=== PATIENT | female | born 1985 | race African-American/Black ===

== ENCOUNTER 2021-12-28 16:05 | Emergency (ER) | payer MEDICAID, SELFPAY ==
[2021-12-28 16:33] VITALS: BP 131/73; PULSE 81; RESP 16; TEMP 36.7; O2SAT 97; BMI 37.3
--- NOTE | 2021-12-28 17:00 | ED_ITS ---
HPI - General Adult General Time Seen by Provider: 17:01 Date Seen: 12/28/21 Chief complaint: Urogenital Problems, Female Stated complaint: UTI, Can't use right hand Time Seen by Provider: 12/28/21 16:48 Source: patient Mode of arrival: ambulatory Limitations: no limitations History of Present Illness HPI narrative: Patient is a 36-year-old female who has dysuria frequency blood in her urine, she has had frequent UTIs. She has allergy to narcotics. She also reports that she works at [employer] and has had right thumb pain the base of her thumb for the last period of time. She is not really tried any treatment. She has not had today time off work. Denies significant trauma to the area Related Data Previous Rx's Medication Instructions Recorded nitrofurantoin 100 mg PO BID #10 caps 12/28/21 monohydrate/macrocrystals 100 mg capsule (Macrobid) Allergies Allergy/AdvReac Type Severity Reaction Status Date / Time acetaminophen [From Vicodin] Allergy Severe Anaphylaxis Verified 12/28/21 16:45 hydrocodone [From Vicodin] Allergy Severe Anaphylaxis Verified 12/28/21 16:45 morphine Allergy Severe heart stops Verified 12/28/21 16:45 Review of Systems Status of ROS: Reports: 6 or more systems reviewed and unremarkable except as noted in History and below PFSH PFSH Social History Smoking Status: Former smoker Do you use any of these nicotine containing products: None Second hand tobacco smoke exposure: Yes How often do you have a drink containing alcohol: monthly or less How many standard drinks containing alcohol do you have on a typical day: 1 or 2 How often do you have six or more drinks on one occasion: Never AUDIT-C Alcohol total score: 1 Non-prescribed substance use: marijuana (any form) service: No Exam Narrative: Exam Narrative: Objective in general the patient is no apparent distress she is very pleasant vital signs unremarkable she is afebrile Kendal Patient has over her extensor tendon number proximal thumb on the right, but she really does not want this examined, she has limited range of motion, mild soft tissue swelling. Patient denies any flank pain or but has had dysuria frequency. Const: Vital Signs, click to edit/add: Vital Signs - 24 hr 12/28/21 16:33 Temperature 98.1 F Pulse Rate [Right Pulse Oximeter] 81 Respiratory Rate 16 Blood Pressure [Ri ght Upper Arm] 131/73 Pulse Oximetry 97 Oxygen Delivery Me thod Room Air Course Vital Signs Vital signs: Initial Vital Signs Temperature 98.1 F 12/28/21 16:33 Temperature Source Temporal Artery Scan 12/28/21 16:33 Pulse Rate 81 12/28/21 16:33 Respiratory Rate 16 12/28/21 16:33 Blood Pressure 131/73 12/28/21 16:33 Blood Pressure Mean 92 12/28/21 16:33 Blood Pressure Position Sitting 12/28/21 16:33 Pulse Oximetry 97 12/28/21 16:33 Oxygen Delivery Method 12/28/21 16:33 Vital Signs Temperature 98.1 F 12/28/21 16:33 Pulse Rate 81 12/28/21 16:33 Respiratory Rate 16 12/28/21 16:33 Blood Pressure 131/73 12/28/21 16:33 Pulse Oximetry 97 12/28/21 16:33 Oxygen Delivery Method 12/28/21 16:33 Temperature 98.1 F 12/28/21 16:33 Pulse Rate 81 12/28/21 16:33 Respiratory Rate 16 12/28/21 16:33 Blood Pressure 131/73 12/28/21 16:33 Pulse Oximetry 97 12/28/21 16:33 Oxygen Delivery Method 12/28/21 16:33 Medical Decision Making MDM Narrative Medical decision making narrative: Would recommend icing for the thumb tendinitis thumb spica splint will be given, Advil or Aleve as needed, follow-up with primary care in the next few days if not improving or resolving Urinary frequency in symptoms would be treated Macrobid 100 b.i.d. x5 days, she has had frequent infections and I think currently has her menstrual cycle therefore urinalysis be much less helpful. Will simply treat with antibiotics Lab Data Labs: Lab Results 12/28/21 Range/Units 16:49 Urine Color Brown A (Yellow) Urine Appearance Clear (Clear) Urine pH 5.5 (5.0-8.5) Ur Specific [place] 1.025 (1.000-1.030) Urine Protein 1+ A (Negative) Urine Glucose (UA) Negative (Negative) Urine Ketones Negative (Negative) Urine Blood 3+ A (Negative) Urine Nitrite Negative (Negative) Urine Bilirubin Negative (Negative) Urine Urobilinogen 0.2 (0.2-1.0) Ur Leukocyte Esterase 1+ A (Negative) Urine RBC 10-25 A (0-2) Urine WBC 5-10 A (0-5) Ur Squamous Epith Cells Few (None-Few) Urine Bacteria None (None) Discharge Plan Discharge Clinical Impression: Urinary tract infection, Pain of right thumb Patient Disposition: Home, Self-Care Condition: Stable Additional Instructions: Rest, fluids, ice to the thumb area that is sore 5-10 minutes 3 times a day for the next 5 days, Advil or Aleve as needed, thumb spica splint given. Patient also be given Macrobid for UTI which she has had repetitively 100 mg b.i.d. x5 days, push fluids, follow up with primary care in the next few days regarding her hand. Activity Level: Light activity and Wear Brace Discharge Diet: Regular Prescriptions: New nitrofurantoin monohyd/m-cryst [Macrobid] 100 mg capsule 100 mg PO BID Qty: 10 0RF Rx Instructions: must administer with a meal/food Stand Alone Forms: [facility] Info Instructions
[2021-12-28 17:05] LABS: Appearance Urine Clear (Clear); Bilirubin Urine Negative (Negative); Blood Urine 3+ (Negative); Color Urine Brown (Yellow); Glucose Urine Negative (Negative); Ketones Urine Negative (Negative); Leukocyte Esterase Urine 1+ (Negative); Nitrite Urine Negative (Negative); Protein Urine 1+ (Negative); Specific Gravity Urine 1.025 (1.000-1.030); Urobilinogen Urine 0.2 (0.2-1.0); pH Urine 5.5 (5.0-8.5)
[2021-12-28 17:13] LABS: Squamous Epithelial Cell Urine Few (None-Few)
== END 2021-12-28 17:47 | disposition home or self-care (01) ==
PROVIDERS: Emergency Provider Family Medicine
DX: M79.644 Pain in right finger(s) (principal); N39.0 Urinary tract infection, site not specified
CPT/HCPCS: 81001; 87086; 99282; 99283

== ENCOUNTER 2022-08-01 17:12 | Emergency (ER) | payer MEDICAID, SELFPAY ==
[2022-08-01 17:19] VITALS: BP 139/92; PULSE 106; RESP 16; TEMP 37; O2SAT 98; BMI 35.3
[2022-08-01 17:30] VITALS: BP 134/111
--- NOTE | 2022-08-01 17:34 | ED.HA ---
HPI - Headache General Chief Complaint: Headache/Migraine Stated Complaint: Migraine for 3 days, possible lupus flair up Time Seen by Provider: 08/01/22 17:19 History of Present Illness HPI Narrative: This 36-year-old female comes in reporting headache for the past 3 days. She states that she does get headaches at various times and this 1 is more severe than usual. She does reports some blurry vision and has some nausea but no vomiting. She does not have any other report of neurologic deficit. She does have lupus and states that her OLY was checked recently and it was elevated. She is wondering if she is having a flare-up of her lupus symptoms. Related Data Previous Rx's Medication Instructions Recorded nitrofurantoin 100 mg PO BID #10 caps 12/28/21 monohydrate/macrocrystals 100 mg capsule (Macrobid) Allergies Allergy/AdvReac Type Severity Reaction Status Date / Time acetaminophen [From Vicodin] Allergy Severe Anaphylaxis Verified 12/28/21 16:45 hydrocodone [From Vicodin] Allergy Severe Anaphylaxis Verified 12/28/21 16:45 morphine Allergy Severe heart stops Verified 12/28/21 16:45 Review of Systems Status of ROS: Reports: 10 or more systems reviewed and unremarkable except as noted in History and below Narrative: Constitutional: No fevers, no weight gain or loss. Eyes: No discharge. She reports some blurry vision. HENT: No congestion, no sore throat, no ear pain. Cardiovascular: No chest pain, no palpitations. Respiratory: No shortness of breath, no wheezes, no cough. Gastrointestinal: No abdominal pain, no vomiting, no diarrhea. She reports some nausea symptoms. Genitourinary: No dysuria, no hematuria. Musculoskeletal: Normal range of motion. Skin: No rashes, no pruritis. Neurological: No dizziness, weakness, sensory change, speech change. Endo/Heme/Allergies: No bruising or bleeding. No polydipsia. Pysch: no suicidality, no anxiety, no insomnia. All other systems reviewed and are negative. [facility] Social History Smoking Status: Former smoker Do you use any of these nicotine containing products: None Second hand tobacco smoke exposure: Yes How often do you have a drink containing alcohol: monthly or less How many standard drinks containing alcohol do you have on a typical day: 1 or 2 How often do you have six or more drinks on one occasion: Never AUDIT-C Alcohol total score: 1 Non-prescribed substance use: marijuana (any form) service: No Exam Narrative: Exam Narrative: Constitutional: Well-developed, well-nourished. She is tearful because of her headache symptoms. HEENT: Normocephalic, atraumatic. Neck: Normal range of motion. Nontender. Supple. Heart: Regular. No murmurs. Normal rate. Intact distal pulses. Lungs: Clear to auscultation. No chest discomfort. No wheezes, rhonchi, or rales. Abdomen: Normal bowel sounds. Nontender. No rebound tenderness. Genitalia: Deferred. Back: No midline tenderness. Normal range of motion. Extremities: Normal range of motion. No injury. Skin: Intact. No rash. Warm. No erythema or pallor. Neurologic: No altered sensation. No weakness. Alert and oriented. Psychiatric: No suicidality. No anxiety or depression. No insomnia. Nursing notes and vitals signs are reviewed. Const: Vital Signs, click to edit/add: Vital Signs - 24 hr 08/01/22 17:19 Temperature 98.6 F Pulse Rate [Pulse Oximeter] 106 H Respiratory Rate 16 Blood Pressure [Ri ght Upper Arm] 139/92 H Pulse Oximetry 98 Oxygen Delivery Me thod Room Air Course Vital Signs Vital signs: Initial Vital Signs Temperature 98.6 F 08/01/22 17:19 Temperature Source Temporal Artery Scan 08/01/22 17:19 Pulse Rate 106 H 08/01/22 17:19 Pulse Rhythm Regular 08/01/22 17:19 Respiratory Rate 16 08/01/22 17:19 Blood Pressure 139/92 H 08/01/22 17:19 Blood Pressure Mean 107 H 08/01/22 17:19 Blood Pressure Position Supine 08/01/22 17:19 Pulse Oximetry 98 08/01/22 17:19 Oxygen Delivery Method Room Air 08/01/22 17:19 Vital Signs Temperature 98.6 F 08/01/22 17:19 Pulse Rate 106 H 08/01/22 17:19 Respiratory Rate 16 08/01/22 17:19 Blood Pressure 139/92 H 08/01/22 17:19 Pulse Oximetry 98 08/01/22 17:19 Oxygen Delivery Method Room Air 08/01/22 17:19 Temperature 98.6 F 08/01/22 17:19 Pulse Rate 106 H 08/01/22 17:19 Respiratory Rate 16 08/01/22 17:19 Blood Pressure 139/92 H 08/01/22 17:19 Pulse Oximetry 98 08/01/22 17:19 Oxygen Delivery Method Room Air 08/01/22 17:19 MDM - Headache MDM Narrative Medical decision making narrative: This patient comes in with headache as described above. An IV was established where she did receive a L of normal saline, Toradol 15 mg, Benadryl 50 mg, and Zofran 4 mg. She also received a 1 time IV dose of methylprednisolone 125 mg. This brought sufficient relief to her symptoms. She is okay to be discharged home. She did receive a prescription for more tablets of Toradol to be used as needed and directed. Discharge Plan Discharge Clinical Impression: Headache Patient Disposition: Home, Self-Care Condition: Improved Additional Instructions: Take medication as needed and directed. Follow up with MD or return if worsening. Prescriptions: No Action nitrofurantoin monohyd/m-cryst [Macrobid] 100 mg capsule 100 mg PO BID Qty: 10 0RF Rx Instructions: must administer with a meal/food Follow Up/Referrals: Provider,Not a Local [Primary Care Provider] - Stand Alone Forms: [employer] Info Instructions
[2022-08-01 18:00] VITALS: BP 136/103
[2022-08-01] MEDS: KETOROLAC 30 MG/ML inj 15 MG IVP (18:12)
[2022-08-01] MEDS: METHYLPREDNISOLONE SOD SUCC 62.5 MG/ML (125) 125 MG IVP (18:12)
[2022-08-01] MEDS: diphenhydrAMINE 50 MG/ML inj IVP (18:12)
[2022-08-01] MEDS: ONDANSETRON 2 MG/ML inj 4 MG IVP (18:12)
[2022-08-01] MEDS: 0.9 % SODIUM CHLORIDE 1000 ml 1,000 ML IV (18:13)
[2022-08-01 18:30] VITALS: BP 137/86; PULSE 86; O2SAT 94
[2022-08-01 19:30] VITALS: BP 142/108; PULSE 87; O2SAT 97
== END 2022-08-01 19:50 | disposition home or self-care (01) ==
PROVIDERS: Emergency Provider Emergency Medicine Emergency Medical Services
DX: R51.9 Headache, unspecified (principal)
CPT/HCPCS: 96361; 96374; 96375; 99284; J1200; J1885; J2405; J2930; J7030

== ENCOUNTER 2024-08-06 17:06 | Emergency (ER) | payer MEDICAID, OTHER, SELFPAY ==
--- OUTSIDE RECORDS SUMMARY | 2024-02-28 05:44 | XMS_ITS | Continuity of Care Document ---
Author Organization [facility] Address [address] [address] [place] [address] Phone Care Team Providers Care [facility] Name Role Phone Tom Gallardo MD, Jarrell Unavailable Unavailabl e Allergies, Adverse Reactions, Alerts Substance Reaction Status Criticality hydrocodone Active No Information morphine Heart stopped Active No Information WARNIN allergy(ies) could not be collected because the type is not supported. Please contact the source practice for further details. Procedures Procedure Date Routine Serum Collection Offic/outpt E&m Estab Mod-hi 2 24 Colonoscopy Flex; W/bx /mx Ugi Endo; W/bx /mx Level Iv-surg Path Gross/micro 24 Offic/outpt E&m Estab Mod-hi 2 24 Offic/outpt E&m New Mod-hi Routine Serum Collection Subsqt Hosp-da E&m Minr Compl 9 Ercp; W/sphincterotomy/papillo Inpt Ercp; W/endo Retro Remov Stone 09 Init Inpt Cons New/est Mod-hi 9 Advance Directives Directive Yes / No Effective Date File Name No Information Encounters Encounter Description Practice Location Reason(s) For Visit Diagnoses Date Provider Providers Copied on Encounter [facility], [address] [address], [place], [id number], tel:[phone] [facility] No Information 4 Tom Vieyra. [address], [id number], [place]. tel:[phone] [facility], [address] [address], [facility] [place] [id number], [place] tel:[phone] [facility] Abnormal liver enzymes 4 Royer [place]. [address] [place] [address], [id number], [place]. tel:[phone] Jose Gaviria MD. tel:[phone] Offic/outpt E&m Estab Mod-hi 2 [facility], [address] [address], [facility] [place], [id number], [place] tel:[phone] [facility] GI Symptoms or Concerns (chief complaint) Abnormal liver enzymesHomici kasey ideation 4 Royer MARTHA Felipa. [address] [place] [address], [id number], [place]. tel:[phone] Jose Gaviria MD. tel:[phone] erring Provider: Referral Self, USE FOR SELF REFERRALS. [facility], [address] [address], [facility] [place] [id number], [place] tel:[phone] [facility] Noninfective gastroenterit is and colitis, unspecifiedUn specified abdominal painChronic diarrheaColor ectal polyp detected on colonoscopyBe nign neoplasm of cecumUnspecif ied abdominal painNoninfect maria fernanda gastroenterit is and colitis, unspecified 0 4 Kyler Millard. [address], [id number], [place]. tel:[phone] Jose Gaviria MD. tel:[phone] erring Provider: Referral Self, USE FOR SELF REFERRALS. Offic/outpt E&m Estab Mod-hi 2 [facility], [address] [address], [place], [id number], [place] tel:[phone] [facility] GI Symptoms or Concerns (chief complaint) Left-sided abdominal pain of unknown etiologyLupus Abnormal liver enzymesEarly satietyLoss of appetiteAdult ADHDChronic diarrhea 4 Kyler BOSE Freeman. [address] [facility], [facility] [address], [place], [id number], [place]. tel:[phone] Jose Gaviria MD. tel:[phone] erring Provider: Referral Self, USE FOR SELF REFERRALS. Offic/outpt E&m New Mod-hi [facility], [address] [address], [place], [id number], [place] tel:[phone] [facility] GI Symptoms or Concerns (chief complaint) Chronic diarrheaAbnor mal liver enzymes 4 Kyler BOSE Freeman. [address] [facility], [facility] [address], [place], [id number], [place]. tel:[phone] Jose Gaviria MD. tel:[phone] erring Provider: Regan Cote MD L, [address], [place], [address]. tel:[phone] [facility], [address] [address], [place], [id number], [place] tel:[phone] [facility] No Information 4 Tom Vieyra. [address] [facility], [facility] [address], [place], [place], [id number], [place]. tel:[phone] Subsqt Hosp-da E&m Minr Compl [facility], [address] [address], [place], [id number], [place] tel:[phone] [facility] No Information No Information Referring Provider: Jose Gaviria MD, [address] [facility] [address], [address]. tel:[phone] [facility], [address] [address], [place], [id number], [place] tel:[phone] [facility] No Information Dec-2 8-200 9 No Information Referring Provider: Jose Gaviria MD, [address] [facility] [address], [place], [address]. tel:[phone] Init Inpt Cons New/est Mod-hi [facility], [address] [address], [place], [place], [id number], [place] tel:[phone] [facility] No Information Phill Winchester. [address] [facility], [place], [place], [id number], [place]. tel:[phone] Referring Provider: Jose Gaviria MD, [address] [facility] [address], [place], [address]. tel:[phone] Family History Family Member Type Diagnosis Age At Onset Mother Problem Diverticular disease Immunizations Vaccine Date Status Comments tetanus and diphtheria toxoi ds, adsorbed, preservative free, for adult use (5 Lf of tetanus toxoid and 2 Lf of diphtheria toxoid) administered Note: [facility] bi-direct ional interface ; Source: Other Registry Afluria Qd administered Note: [facility] bi-directional interface ; Source: Other Registry Afluria Qd administered Note: [facility] bi-directional interface ; Source: Other Registry Afluria Qd administered Note: [facility] bi-directional interface ; Source: Other Registry Afluria Qd administered Note: [facility] bi-directional interface ; Source: Other Registry human papilloma virus vaccin e, quadrivalent administered Note: [facility] bi-direct ional interface ; Source: Other Registry Engerix-B administered Note: [facility] bi-d irectional interface ; Source: Other Registry human papilloma virus vaccin e, quadrivalent administered Note: [facility] bi-direct ional interface ; Source: Other Registry tetanus toxoid, reduced diphtheria toxoid, and acellular pertussis vaccine, adsorbed administered Note: [facility] b i-directional interface ; Source: Other Registry Energix Pediatric administered Note: [facility] bi-directional interface ; Source: Other Registry Energix Pediatric administered Note: [facility] bi-directional interface ; Source: Other Registry Haemophilus influenzae type b vaccine, PRP-T conjugate administered Note: [facility] bi-d irectional interface ; Source: Other Registry Payers Payer name Insurance type Covered libertarian ID Authoriza tion(s) No Information Social History Type Description Quantity Date Captured Comments Sex Female Smoking Status No Information Chief Complaint And Reason For Visit No Information Reason For Referral Reason For Referral No Information Plan Of Treatment Date Type Action Status Referral Ordered: follow-up visit with Hepatology MD or DO for Hepatology Clinic First Available Appointment date/timeframe: First Available ordered Referral Ordered: CBC, Whole Blood Appointment date/timeframe: First Available ordered Referral Ordered: Gastric Emptying Study (4 Hours) Appointment date/timeframe: 05/17/2023 ordered Referral Ordered: Liver Biopsy With Ultrasound Guidance Appointment date/timeframe: 06/03/2023 ordered Referral Ordered: EGD Appointment date/timeframe: 05/02/2023 ordered Referral Ordered: Colonoscopy Appointment date/timeframe: 05/03/2023 ordered Referral Ordered: CT Abdomen And Pelvis With Contrast Per Radiology Appointment date/timeframe: 05/02/2023 ordered Referral Ordered: Ultrasound Liver Appointment date/timeframe: 03/30/2023 ordered History Of Present Illness Encounter Date Complaint History Of Prese nt Illness GI Symptoms or Concerns Annalisa campbell is a 37-year-old female, seen today for followup. She has previously seen my colleague, Dr. Chávez, last visit was on 04/15/2023. Please refer to her note for full details.She has had issues with elevated LFTs, left-sided abdominal pain as well as diarrhea. She ultimately underwent a liver biopsy on 06/03/2023, which revealed chronic hepatitis with minimal interface activity favoring systemic involvement by systemic lupus erythematosus with patchy periportal and focal bridging fibrosis. She was previously noted to have a positive OLY, which raises the possibility of autoimmune hepatitis, but overall degree of inflammatory infiltrate was less than what is typically seen in the setting of autoimmune hepatitis.Today, patient reports she continues with abdominal pain as well as diarrhea and nausea. She is not on any medications for management of her lupus. She reports she is having substantial mental health issues. She has concerns for autism, ADHD and possible GI Symptoms or Concerns 37-year- old female patient who presents for follow-up of abnormal liver enzymes and left-sided abdominal pain and diarrhea. Comprehensive workup for liver disease came back unremarkable including normal ultrasound, negative viral hepatitis panel, antismooth muscle antibody, antimitochondrial antibody, alpha-1 antitrypsin, and ceruloplasmin. Denies using any supplements or herbs other than daily edible THC. No excessive Tylenol or NSAIDs. No alcohol use at all at this time. She did have history of heavy alcohol use in the past. Continues to report early satiety, left-sided abdominal pain, and diarrhea. She does not like to try any medication for possible bile salt induced diarrhea. She does not like to use any antidiarrheal medicine. No blood in the stool or melena. No prior endoscopy or colonoscopy. No recent abdominal CTs.PAST MEDICAL HISTORYAnxiety.Depression.History of gallstone pancreatitis. History of COVID. History of sepsis. History of stroke. Lupus. ADHD.PAST SURGICAL HISTORYCholecystectomy in 2012.Bilateral tubal ligation.Hernia repair.FAMILY HISTORYMother with a history of hepatitis.SOCIAL HISTORY Remote history of heavy alcohol use. On remission. Daily edible THC. GI Symptoms or Concerns A 37-yea r-old female patient with history of lupus, who was referred for evaluation of chronic diarrhea, unintentional weight loss, and elevated liver enzymes. History was difficult to obtain, as the patient did not know why she is in the clinic and kept saying that she does not have time for herself due to the significant financial burden and the significant stress that she has at home with her 4 kids, everyone dealing with a different psychiatric issue along with her significant stress and anxiety, especially that she did not take her edibles today. She reports that she was diagnosed with lupus in 2017, but she did not follow up for that until just recently, again for the same reasons described above. When we clarified for her that she was referred for elevated liver enzymes, she reported that she has always had elevated liver enzymes, but she tries to forget about her medical problems. She was never diagnosed with any clear liver disease in the past. She reports that she s Functional Status Date Functional Assessmen t No Information Instructions Date Instruction Additional Infor juan francisco Colon Cancer Prevention Related to Colorectal polyp detected on colonoscopy Colon Polyps Related to Color ectal polyp detected on colonoscopy 1. Ultrasound-guided liver biopsy. 2. CT scan of the abdomen and pelvis. 3. Upper endoscopy with gastric and duodenal biopsies, and colonoscopy with TI evaluation and random colon biopsies. 4. We discussed options for treating IBS but patient would like to hold off any medical therapy as she is tolerating the symptoms. 5. Follow-up in 3 months. I will consider breath testing x3, empiric therapy for IBS D with rifaximin or TCA.Suggested fiber supplementation with psyllium husk and ib guard. Related to Chronic diarrhea 1. We will obtain st ool testing for ova and parasitic infection, for pancreatic elastase and fecal calprotectin.2. We will obtain workup for her elevated liver enzymes including repeating hepatic panel, OLY, anti-smooth muscle antibody, antimitochondrial antibody, viral hepatitis panel, iron panel, ceruloplasmin, and alpha-1 antitrypsin phenotype.3. Follow up in a month. We will consider further workup with upper and lower endoscopies and a CT scan of the abdomen and pelvis. Related to Chronic diarrhea Assessments Type Assessment Date No Information Patient Care Teams Name Effective Dates (start - stop) Status Members No Information
--- OUTSIDE RECORDS SUMMARY | 2024-02-28 05:44 | XMS_ITS | Continuity of Care Document ---
Author Organization [facility] Address [address] [address] [place] [address] Phone Care Team Providers Care Retail Business Analyst Name Role Phone Tom Gallardo MD, Jarrell [...] Diagnoses Date Provider Providers Copied on Encounter [facility], [address] [address], [place], [id number], tel:[phone] [facility] No Information 4 Tom Vieyra. [address], [id number], [place]. tel:[phone] [facility], [address] [address], [facility] [place], [id number], [place] tel:[phone] [facility] Abnormal liver enzymes 4 Royer Leo. [address] [place] [address], [id number], [place]. tel:[phone] Jose Gaviria MD. tel:[phone] Offic/outpt E&m Estab Mod-hi 2 [facility], [address] [address], [facility] [place], [id number], [place] tel:[phone] [facility] GI Symptoms or Concerns (chief complaint) Abnormal liver enzymesHomici kasey ideation 4 Royer MARTHA Felipa. [address] [place] [address], [id number], [place]. tel:[phone] Jose Gaviria MD. tel:[phone] erring Provider: Referral Self, USE FOR SELF REFERRALS. [facility] [place], [address] [address], [facility] [place], [id number], [place] tel:[phone] [facility] Noninfective gastroenterit is and colitis, unspecifiedUn specified abdominal painChronic diarrheaColor ectal polyp detected on colonoscopyBe nign neoplasm of cecumUnspecif ied abdominal painNoninfect maria fernanda gastroenterit is and colitis, unspecified 0 4 Kyler Millard. [address], [id number], [place]. tel:[phone] Jose Gaviria MD. tel:[phone] erring Provider: Referral Self, USE FOR SELF REFERRALS. Offic/outpt E&m Estab Mod-hi 2 [facility], [address] [address], [place], [id number], [place] tel:[phone] [facility] GI Symptoms or Concerns (chief complaint) Left-sided abdominal pain of unknown etiologyLupus Abnormal liver enzymesEarly satietyLoss of appetiteAdult ADHDChronic diarrhea 4 Kyler BOSE Freeman. [address] [facility] [address], [place], [id number], [place]. tel:[phone] Jose Gaviria MD. tel:[phone] erring Provider: Referral Self, USE FOR SELF REFERRALS. Offic/outpt E&m New Mod-hi [facility], [address] [address], [place], [id number], [place] tel:[phone] [facility] GI Symptoms or Concerns (chief complaint) Chronic diarrheaAbnor mal liver enzymes 4 Kyler BOSE Freeman. [address] [facility], [facility] [address], [place], [id number], [place]. tel:[phone] Jose Gaviria MD. tel:[phone] erring Provider: Regan Cote MD L, [address] [facility] [address], [place], [address]. tel:[phone] [facility], [address] [address], [place], [id number], [place] tel:[phone] [facility] No Information 4 Tom Vieyra. [address] [facility], [facility] [address], [place], [place], [id number], [place]. tel:[phone] [facility]da E&m Minr Compl [facility], [address] [address], [place], [id number], [place] tel:[phone] [facility] No Information No Information Referring Provider: Jose Gaviria MD, [address] [facility] [address], [place], [address]. tel:[phone] [facility], [address] [address], [place], [id number], [place] tel:[phone] [facility] No Information Dec-2 8-200 9 No Information Referring Provider: Jose Gaviria MD, [address] [facility] [address], [place], [address]. tel:[phone] Init Inpt Cons New/est Mod-hi [facility], [address] [address], [place], [place], [id number], [place] tel:[phone] [facility] No Information Phill Winchester. [address] [facility], [place], [place], [id number], [place]. tel:[phone] Referring Provider: Jose Gaviria MD, [address] [facility] [address], [place], [address]. tel:[phone] Family History Family Member Type Diagnosis Age [...] type b vaccine, PRP-T conjugate administered Note: NDIC bi-d irectional interface ; Source: Other Registry Payers Payer name Insurance type Covered alliance party ID Authoriza tion(s) No Information Social History [...]
[2024-08-06] VITALS (39 sets, daily range): BP systolic 85–120; BP diastolic 58–76; PULSE 70–92; RESP 9–28; TEMP 36.8; O2SAT 94–99; BMI 36.7
--- OUTSIDE RECORDS SUMMARY | 2024-08-06 17:10 | XMS_ITS | Clinical Summary ---
Author Organization [facility] Address [address] [place] [address] Care Team Providers Care Department Chairperson Name Role Phone Jose Gaviria MD Primary Care Provider Terrence Patton MD Unavailable [phone] Allergies Active Allergy Reactions Criticality Noted Date Comments Hydrocodone-Acetaminoph en Hives,Shortness Of Breath,Rash,Itching 02/18/2009 Lavender Oil Itching 03/08/2023 Morphine Cardiac Arrest High 10/06/2006 Occurred during her tonsil surgery at age 17, could not remember the next 3 days, was sent home after the surgery [place] Mushroom Diarrhea 03/08/2023 Unlisted Allergen (Include Detail In Comments) Other - Describe In Comment Field 06/08/2006 Pt. intolerant to all pain medications. Pt. able to take liquid children's tylenol. [id number] Antimigraine Agents Other - Describe In Comment Field 09/20/2015 RCVS - severe headache Medications medication order composer Biotin 05/23/2024 Active Active Problems Problem Noted Date Diagnosed Date Mild major depression 06/25/2024 Weight gain 06/25/2024 Generalized anxiety disorder 06/25/2024 Personality disorder, unspecified 08/20/2022 PTSD (post-traumatic stress disorder) 08/20/2022 Pap smear for cervical cancer screening 08/04/19 Overview (08/03/2022): 06/30/2022: NIL/HPV negative Plan: Pap and HPV due in 5 years. Transaminitis 02/07/2021 Pneumonia due to COVID-19 virus 02/07/2021 Lupus 01/29/2021 Sepsis due to COVID-19 01/28/2021 Bipolar affective disorder 01/28/2021 Reversible cerebrovascular vasoconstriction synd srinivasa 09/20/2015 Acute headache 09/19/2015 Obesity 09/19/2015 Tobacco use 12/10/2014 Bunion of great toe 12/05/2014 Blood type A+ 12/28/2011 OCD (obsessive compulsive disorder) 10/30/2009 Depression with anxiety 10/30/2009 Bipolar affective disorder, current episode mixe d 10/30/2009 Vitamin D deficiency 06/12/2009 Overview (12/28/2011): Low vitamin D hx repeat lab with labs shows: low at 21.7. Advised supplement with .PEACE Olea ....................... 12/28/2011 10:11 AM Elevated LFT's 02/22/2009 Resolved Problems Problem Noted Date Diagnosed Date Resolved Date Acute hypoxemic respiratory failure due to COVID-19 01/28/2021 06/30/2022 LFT elevation 10/03/2012 12/10/2014 Breech presentation without mention of version, delivered 03/27/2012 12/10/2014 Supervision of other normal 12/27/2011 12/10/2014 Overview (12/27/2011): Late entry to care 26.3 weeks EDC 03/20/2012.. Close spacing.Conceived current while breast feeding. Feels to be 23-25 weeks.PEACE Olea ....................... 12/27/2011 1:36 PM Assessment & Plan (02/21/2012 11:37 AM CLERICAL COORDINATOR): Declines flu vaccine. Sheryl Smith LPN.......... 02/21/2012 11:37 AM , subsequent 06/09/20102014 Abdominal pain, generalized 02/22/2009 12/10/2014 Pancreatitis 02/22/2009 12/10/2014 Decreased movements, a ffecting management of mother, unspecified as to episode of care in 09/23/2008 06/09/2009 High-risk 08/07/2008 06/10/19 10 Supervision of other normal 04/17/2008 06/09/2009 Other immediate h emorrhage, 09/06/2007 06/09/2009 Overview (09/06/2007): Estimated blood loss 1000ml Shoulder (girdle) dystocia d uring labor and delivery, unspecified as to episode of care 09/06/2007 06/09/2009 Overview (09/06/2007): Mild requiring elevated legs and suprapubic pressure Unspecified maternal pyrexia during labor, delivered 09/06/2007 06/09/2009 Supervision of normal first 01/18/2007 03/08/2008 Incarcerated umbilical hernia 12/29/2017 Encounters Date Type Department Care Team Description 06/25/2024 7:10 AM CDT Telemedicine [facility] [address] [address] Fauzia Pedroza NP Medication Management (Check and refills ) 06/18/2024 10:40 AM CDT Office Visit [facility] [address] [place] [address] Eloy Forrest MD Allergies ( ABDOMINAL PAIN, WEIGHT GAIN, BLOATING (referred by Fauzia Pedroza BIKE MECHANIC)) 06/18/2024 Travel 06/04/2024 8:30 AM CDT Telemedicine [facility] [address] [facility] [place] [address] [facility] Visit; Telehealth 06/01/2024 9:00 AM CDT Telemedicine [facility] [address] [place] [address] Jessi Garcia PsyD, LP Psychological Testing 05/23/2024 9:10 AM CDT Office Visit [facility] [address] [place] [address] Fauzia Pedroza NP Concerns (pt states she has had calf pain for the last 3 days.); Abdominal Pain (pt states that she is feeling full after a few bites of food and her stomach gets rock hard. she is wondering about allergies.); Weight (pt is concern about her weight gain. It is affecting her mental health. she has lost over 100 lbs in the last two years and now nothing she does is working. wants hormones tested...) 05/23/2024 Travel 05/23/2024 Nurse Triage [facility] [address] [place] [address] Jose Gaviria MD Leg Pain/problem 05/22/2024 8:30 AM CDT Telemedicine [facility] [address] [place] [address] [facility] Visit; Telehealth 05/08/2024 1:00 PM CDT Telemedicine [facility] [address] [place] [address] [facility] Visit; Telehealth from Last 3 Months Immunizations Immunization Administration Dates Next Due HIB PRP-OMP (PedvaxHIB) 09/11/1986 HIB PRP-T (ActHIB,Hiberix) 09/11/1986 Hepatitis B (Adult) 10/04/2008,10/26/2001,2001 Hepatitis B (Peds) 10/26/2001,03/21/2001 Human Papilloma Virus Vaccine 12/06/2008, 007,06/08/2006 Influenza, IIV3 (Age >=3 years) 01/04/2013 Influenza, IIV4 12/17/2016, 6,11/01/2014,2013 Td, Preservative Free (age > = 7 Years) 06/30/2022 Tdap 06/08/2006 Family History Medical History Relation Name Comments Obesity Brother 1 Psychiatric illness Brother 1 ADHD,ADD Unknown Brother 1 Obesity Brother 2 Psychiatric illness Brother 2 ADD Unknown Brother 2 Unknown Father Diabetes Mother Gestational as well as diabetes after Psychiatric illness Mother Suicidal ,Anxiety,Panic Disorder,Bipolar Unknown Mother Obesity Sister 1 Psychiatric illness Sister 1 Bipolar Unknown Sister 1 Obesity Sister 2 Psychiatric illness Sister 2 Unknown Sister 2 Relation Name Status Comments Brother 1 Alive Brother 2 Alive Father Mother Alive Sister 1 Alive Sister 2 Alive Social History Tobacco Use Types Packs/Day Years Used Date Smoking Tobacco: Former Cigarettes 0.5 14 Smokeless Tobacco: Never Tobacco Cessation:Counseling Given: Not Answered Comments:passive smoker. 5-6 Cigarettes per day 11/23/13. Alcohol Use Standard Drinks/Week Comments Yes 0 (1 standard drink = 0.6 oz pur e alcohol) Very rare PHQ-2 Answer Date Recorded PHQ-2 TOTAL SCORE 4 06/25/2024 Social Connections Answer Date Recorded Do you often feel lonely or isolated from those around you? 0 05/23/2024 Financial Resource Strain Answer Date R ecorded Difficulty of Paying Living Expenses 3 05/23/2024 Difficulty of Paying Living Expenses Not on file 05/23/2024 Food Insecurity Answer Date Recorded Do you worry your food will run out before you are able to buy more? 1 05/23/2024 Transportation Needs Answer Date Record ed Does lack of transportation keep you from medica l appointments? 1 05/23/2024 Does lack of transportation keep you from work, meetings or getting things that you need? 1 05/23/2024 Housing Stability Answer Date Recorded What is your housing situation today? 1 05/23/2024 Interpersonal Safety Answer Date Record ed Are you being hit, kicked, p ushed or yelled at (see row info)? No 12/13/2023 Interpersonal Safety Abuse 12 - 18 Not on file 12/13/2023 Interpersonal Safety Ambulatory Vulnerability No t on file 12/13/2023 Utilities Answer Date Recorded Do you have trouble paying f or utilities (for example, heat, electricity, water, phone)? 1 05/23/2024 Comments No Sex and Gender Information Value Date Recorded Sex Assigned at Not on file Legal Sex Female 5:54 AM CLERICAL COORDINATOR Gender Identity Not on file Sexual Orientation Not on file Obstetrics History Para Term AB IAB SAB Ectopic Multiple Livin g Live Births 4 4 4 0 0 0 0 0 0 4 4 Date Outcome GA Total Labor Labor/2nd/3rd Weight Sex Type Anes PTL Opal A1 A5 Name Clin 2007 Term 40w 0d 3.09 kg (6 lb 13 oz) F Vag Intrat hecal N Livin g Christine Alex lson Delivery Location:[facility] Comments:shoulder dyst ocia, PPH 2008 Term 40w 0d 3.18 kg (7 lb) M Vag None N Livin g Jakraeo y Alex lson Delivery Location:[facility] 2010 Term 40w 3d 3.18 kg (7 lb) M Vag None N Livin g 9 9 Cristofer Alex lson Delivery Location:[facility] Comments:unassisted de livery, into bed 2012 Term 39w 4d 2.67 kg (5 lb 14.2 oz) M Vag Livin g 9 9 HEARD, BABY BOY Delivery Location:[facility] Last Filed Vital Signs Vital Sign Reading Time Taken Comments Blood Pressure 121/80 06/18/2024 10:55 AM CDT Pulse 87 06/18/2024 10:55 AM CDT Temperature 36.7 C (98 F) 06/18/2024 10:55 AM CDT Respiratory Rate 20 12/13/2023 8:30 AM CDT Oxygen Saturation 98% 06/18/2024 10:55 AM CDT Inhaled Oxygen Concentration - - Weight 91.4 kg (201 lb 9.6 oz) 06/18/2024 10:55 AM CDT Height 160 cm (5' 3) 06/18/2024 10:55 AM CDT Body Mass Index 35.71 06/18/2024 10:55 AM CDT Plan of Treatment Health Maintenance Due Date Last Done Comments COVID-19 vaccine series ( season) 2023 Influenza Vaccine (Season Ended) 2024 12/17/2016, 12/17/2015, 11/01/2014, Additional history exists BMI (ht and wt on same day) for age 18+ 06/18/2025 06/18/2024, 02/10/2024, 06/30/2022, Additional history exists Depression screening for age 12+ 06/25/2025 06/25/2024, 05/23/2024, 04/09/2024, Additional history exists Pap test for age 21-65 07/01/2027 , 06/30/2022, 12/27/2011, Additional history exists Colonoscopy through age 75 05/02/2030 05/03/2023, Tetanus booster 06/30/2032 06/30/2022, 06/08/2006 Tdap Completed 06/08/2006 Hepatitis B series for 19+ Completed 10/04, 10/26/2001, 10/26/2001, Additional history exists HIV for age 15-65 Completed 06/09/2010, 01/18/2007 Hepatitis C screening for age 18-79 Completed 10/02/2012 Pneumococcal series for age 6-49 Aged Out No longer eligible based on patient's age to complete this topic Medical Devices Implanted Type Area Batch Dumper Device Identifier Shelf Expiration Date Model / Serial / Lot Mesh Ventral 15cm Ventralight St W/Echo2 - [id number] Implanted:Qty: 1 on 01/25/2017 by Stormy Gregg MD at [facility] N/A: Abdomen [employer] 07/25/2017 [id number] / / [id number] Procedures Procedure Name Priority Date/Time Associated Diagnosis Comments DE PERCUTANEOUS TESTS W/ALLERGENIC EXTRACTS Routine 06/18/2024 12:00 AM CDT Abdominal pain, unspecified abdominal location Weight gain Bloating T4,FREE Routine 05/23/2024 9:47 AM CDT CBC WITH AUTO DIFFERENTIAL Routine 05/23/2024 9:47 AM CDT Abdominal pain, unspecified abdominal location Weight gain Bloating TSH WITH REFLEX Routine 05/23/2024 9:47 AM CDT Abdominal pain, unspecified abdominal location Weight gain Bloating COMP METABOLIC PANEL Routine 05/23/2024 9:47 AM CDT Abdominal pain, unspecified abdominal location Weight gain Bloating LUTEINIZING HORMONE Routine 05/23/2024 9 :47 AM CDT Abdominal pain, unspecified abdominal location Weight gain Bloating ESTRADIOL Routine 05/23/2024 9:47 AM CDT Abdominal pain, unspecified abdominal location Weight gain Bloating LIPASE Routine 05/23/2024 9:47 AM CDT Abdominal pain, unspecified abdominal location FSH Routine 05/23/2024 9:47 AM CDT Abdominal pain, unspecified abdominal location Weight gain Bloating CELIAC CASCADE PANEL Routine 05/23/2024 9:47 AM CDT Abdominal pain, unspecified abdominal location Weight gain Bloating Itching SCAN-COLONOSCOPY 05/03/2023 1:00 PM CLERICAL COORDINATOR HPV HIGH RISK Routine 06/30/2022 1:40 PM CDT Screening for cervical cancer ACUTE HEPATITIS PANEL Routine 10/02/2012 3:43 PM CDT LFT elevation ANTI HIV 1/2 Routine 06/09/2010 10:04 AM CDT , subsequent from Last 3 Months or Most Recently Relevant to Health Maintenance Results * DE PERCUTANEOUS TESTS W/ALLERGENIC EXTRACTS (06/18/2024 12:00 AM CDT) Eloy Forrest MD [facility] - [facility]MMUN[facility] Final Result * (ABNORMAL) CELIAC CASCADE PANEL (05/23/2024 9:47 AM CDT) CELIAC DISEASE COMPREHENSIVE PANEL INTERPRETATION [facility] Comment: No serological evidence of celiac disease. Total serum IgA is elevated. Consider mucosal inflammatory conditions or underlying gammopathy. TISSUE TRANSGLUTAMINASE AB, IGA <1.0 U/mL [facility] Comment: Value Interpretation ----- <15.0 Antibody not detected > or = 15.0 Antibody detected IMMUNOGLOBULIN A 390(H) 47 - 310 mg/dL [facility] Blood BLOOD SPECIMEN / Unknown 05/23/2024 9:47 AM CDT 05/23/2024 9:48 AM CDT us Fauzia Pedroza BIKE MECHANIC SEND OUTS Helene l Result Performing Organization Address [facility] Co de Phone Number [facility] [address] [place] [address], [facility] [address] [place] [address] * (ABNORMAL) TSH WITH REFLEX (05/23/2024 9:47 AM CDT) TSH W/REFLEX TO FT4 0.34(L) mIU/L [facility] Comment: Reference Range > or = 20 Years 0.40-4.50 Ranges First trimester 0.26-2.66 Second trimester 0.55-2.73 Third trimester 0.43-2.91 Blood BLOOD SPECIMEN / Unknown 05/23/2024 9:47 AM CDT 05/23/2024 9:48 AM CDT us Fauzia Pedroza NP CHEMISTRY Helene post Result Performing Organization Address [facility] Co de Phone Number [facility] [address] [place] [address], [facility] [address] [facility] [place] [address] * LUTEINIZING HORMONE (05/23/2024 9:47 AM CDT) LH 3.8 mIU/mL [facility] Comment: Reference Range Follicular Phase 1.9-12.5 Mid-Cycle Peak 8.7-76.3 Luteal Phase 0.5-16.9 Postmenopausal 10.0-54.7 Blood BLOOD SPECIMEN / Unknown 05/23/2024 9:47 AM CDT 05/23/2024 9:48 AM CDT Fauzia Pedroza NP CHEMISTRY Helene l Result [facility] [address] [place] [address], [facility] [address] [place] [address] * (ABNORMAL) CBC AND DIFFERENTIAL (05/23/2024 9:47 AM CDT) Pathologist [facility] WHITE BLOOD CELL COUNT 4.7 3.8 - 10.8 Thousand/u L [facility] RED BLOOD CELL COUNT 4.59 3.80 - 5.10 Million/uL [facility] HEMOGLOBIN 12.6 11.7 - 15.5 g/dL [facility] HEMATOCRIT 40.3 35.0 - 45.0 % [facility] MCV 87.8 80.0 - 100.0 fL [facility] MCH 27.5 27.0 - 33.0 pg [facility] MCHC 31.3(L) 32.0 - 36.0 g/dL [facility] Comment: For adults, a slight decrease in the calculated MCHC value (in the range of 30 to 32 g/dL) is most likely not clinically significant; however, it should be interpreted with caution in correlation with other red cell parameters and the patient's clinical condition. RDW 14.0 11.0 - 15.0 % [facility] PLATELET COUNT 286 140 - 400 Thousand/u L [facility] MPV 10.3 7.5 - 12.5 fL [facility] ABSOLUTE NEUTROPHILS 2,425 1,500 - 7,800 cells/uL [facility] ABSOLUTE LYMPHOCYTES 1,579 850 - 3,900 cells/uL [facility] ABSOLUTE MONOCYTES 559 200 - 950 cells/uL [facility] ABSOLUTE EOSINOPHILS 108 15 - 500 cells/uL [facility] ABSOLUTE BASOPHILS 28 0 - 200 cells/uL [facility] NEUTROPHILS 51.6 % [facility] LYMPHOCYTES 33.6 % [facility] MONOCYTES 11.9 % [facility] EOSINOPHILS 2.3 % [facility] BASOPHILS 0.6 % [facility] Blood BLOOD SPECIMEN / Unknown 05/23/2024 9:47 AM CDT 05/23/2024 9:48 AM CDT Fauzia Pedroza BIKE MECHANIC HEMATOLOGY Helene l Result [facility] [address] [address], [facility] [address] [facility] [place] [address] * T4,FREE (05/23/2024 9:47 AM CDT) T4, FREE 1.2 0.8 - 1.8 ng/dL [facility] 05/23/2024 9:47 AM CDT 05/23/2024 9:48 AM CDT us Fauzia Pedroza BIKE MECHANIC CHEMISTRY Helene l Result [facility] [address] [place] [address], [place] [phone] [facility] [address] [facility] [place] [address] * LIPASE (05/23/2024 9:47 AM CDT) LIPASE 28 7 - 60 U/L [facility] Blood BLOOD SPECIMEN / Unknown 05/23/2024 9:47 AM CDT 05/23/2024 9:48 AM CDT Fauzia Pedroza BIKE MECHANIC CHEMISTRY Helene l Result [facility] [address] [place] [address], [facility] [address] [place] [address] * FSH (05/23/2024 9:47 AM CDT) FSH 4.8 mIU/mL [facility] Comment: Reference Range Follicular Phase 2.5-10.2 Mid-cycle Peak 3.1-17.7 Luteal Phase 1.5- 9.1 Postmenopausal 23.0-116.3 Blood BLOOD SPECIMEN / Unknown 05/23/2024 9:47 AM CDT 05/23/2024 9:48 AM CDT us Fauzia Pedroza NP CHEMISTRY Helene l Result Performing Organization Address City/[facility]/ZIP Co de Phone Number [facility] [address] [place] [address], [facility] [address] [place] [address] * ESTRADIOL (05/23/2024 9:47 AM CDT) ESTRADIOL 259 pg/mL [facility] Comment: Reference Range Follicular Phase: 19-144 Mid-Cycle: 64-357 Luteal Phase: 56-214 Postmenopausal: < or = 31 Reference range established on post-pubertal patient population. No pre-pubertal reference range established using this assay. For any patients for whom low Estradiol levels are anticipated (e.g. males, pre-pubertal children and hypogonadal/post-menopausal females), the [facility] Estradiol, Ultrasensitive, LCMSMS assay is recommended (order code 61579). Please note: patients being treated with the drug fulvestrant (Faslodex(R)) have demonstrated significant interference in immunoassay methods for estradiol measurement. The cross reactivity could lead to falsely elevated estradiol test results leading to an inappropriate clinical assessment of estrogen status. [facility] order code [id number], Ultrasensitive LC/MS/MS demonstrates negligible cross reactivity with fulvestrant. Blood BLOOD SPECIMEN / Unknown 05/23/2024 9:47 AM CDT 05/23/2024 9:48 AM CDT Fauzia Pedroza BIKE MECHANIC SEND OUTS Helene sejal Result [facility] [address] [place] [address], [facility] [address] [place] [address] * (ABNORMAL) COMP METABOLIC PANEL (05/23/2024 9:47 AM CDT) Pathologist [facility] GLUCOSE 82 65 - 99 mg/dL [facility] Comment: Fasting reference interval UREA NITROGEN (BUN) 11 7 - 25 mg/dL [facility] CREATININE 0.65 0.50 - 0.97 mg/dL [facility] EGFR 115 > OR = 60 mL/min/1. 73m2 [facility] BUN/CREATININE RATIO SEE NOTE: 6 - 22 (calc) [facility] Comment: Not Reported: BUN and Creatinine are within reference range. SODIUM 133(L) 135 - 146 mmol/L [facility] POTASSIUM 4.2 3.5 - 5.3 mmol/L [facility] CHLORIDE 101 98 - 110 mmol/L [facility] CARBON DIOXIDE 26 20 - 32 mmol/L [facility] CALCIUM 9.1 8.6 - 10.2 mg/dL [facility] PROTEIN, TOTAL 8.0 6.1 - 8.1 g/dL [facility] ALBUMIN 4.0 3.6 - 5.1 g/dL [facility] GLOBULIN 4.0(H) 1.9 - 3.7 g/dL (calc) [facility] ALBUMIN/GLOBULIN RATIO 1.0 1.0 - 2.5 (calc) [facility] BILIRUBIN, TOTAL 0.5 0.2 - 1.2 mg/dL [facility] ALKALINE PHOSPHATASE 59 31 - 125 U/L [facility] AST 35(H) 10 - 30 U/L [facility] ALT 34(H) 6 - 29 U/L [facility] Blood BLOOD SPECIMEN / Unknown 05/23/2024 9:47 AM CDT 05/23/2024 9:48 AM CDT Fauzia Pedroza NP CHEMISTRY Helene l Result [facility] [address] [place] [address], [facility] [address] [place] [address] * SCAN-COLONOSCOPY (05/03/2023 1:00 PM CLERICAL COORDINATOR) Narrative Procedure Note Freeman Chávez MD - 05/03/2023 12:00 PM CST [facility] [address] [place] [address], [address] [place] [id number] Patient Name: Annalisa Aragon Gender: Female Exam Date: 05/03/2023 Visit Number: [id number] Age: 37 Years 7 Months : 1985 Attending MD: Freeman Chávez MD Procedure: Upper GI Endoscopy Indications: Diarrhea, rule out celiac sprue Provider: Freeman Chávez MD Referring MD: Referral Self Primary MD: Jose Gaviria MD Medications: Admitting Medication: 0.9% Normal Saline at TKO Intra Procedure Medications: Patient received monitored anesthesia care. Complications: No immediate complications Procedure: An examination of the heart and lungs was performed within acceptablelimits. The patient was therefore deemed a reasonable candidate forendoscopy and monitored anesthesia care. The risks and benefits were explained to the patient, who appeared tounderstand. After obtaining informed consent, the patient receivedmonitored anesthesia care and I passed the scope. Throughout the procedure the patient's blood pressure, pulse and oxygensaturations were monitored. The scope was introduced through the mouthand advanced to the third portion of duodenum. Findings: Esophagus: Normal esophagus. The z-line is 36 centimeters from the incisors. Top of the gastric foldsis 36 centimeters from the incisors. Stomach: Normal stomach. H. Pylori biopsies taken. The diaphragm hiatus is at 36 centimeters from the incisors. Duodenum: Normal duodenum. Celiac Sprue biopsies taken. Preliminary Impression: Chronic diarrhea Left-sided abdominal pain of unknown etiology Normal upper endoscopy Plan pending Pathology Results: Await biopsy results. Recommendation Comments: Follow up biopsies results. Adding gastric emptying study to assess for early satiety. Proceed with colonoscopy. Orders Diagnostics: Procedure Comments Timeframe Assessment Gastric Emptying Study (4 Hours) First Available R10.9 Electronically Signed Freeman Chávez MD 05/03/2023 1:00 PM Allergies: Medication Name Ingredient Reaction Comment Morphine MORPHINE Heart stopped Food allergies Diarrhea; Vomiting mushrooms Vital Signs: Date Time Systolic Diastolic Height Weight BMI 05/03/2023 1226 PM 118 69 62.50 in 175.50 31.60 Smoking Status: Use Status Type Smoking Status Usage Per Day Years Used Total Pack Years yes Former smoker Race: Preferred Language: Chilean cc: Jose Gaviria MD cc: Jose Gaviria MD [facility] [phone] Freeman Chávez MD OTHER Final Resul t * HPV HIGH RISK (06/30/2022 1:40 PM CDT) TYPE 16 Negative Negative 07/05/2022 2:10 PM CDT [facility] TYPE 18 Negative Negative 07/05/2022 2:10 PM CDT [facility] OTHER HIGH RISK TYPES Negative Negative 07/05/2022 2:10 PM CDT [facility] Other (Cervical) Non-Blood / Unknown 06/30/2022 1:40 PM CDT 07/02/2022 10:03 AM CDT Narrative [facility] - 07/05/2022 2:10 PM CDT HPV types 16, 18, 31, 33, 35, 39, 45, 51, 52, 56, 58, 59, 66 and 68 DNA were undetectable or below the pre-set threshold. Methodology: Gifty Brianna 4800 HPV Test Jose Gaviria MD MICROBIOLOGY Final R esult [facility] [address] [place] [address], * ACUTE HEPATITIS PANEL (10/02/2012 3:43 PM CDT) HBSAG Non-reacti ve [facility] IGM ANTI HBC Non-reacti ve [facility] IGM ANTI HAV Non-reacti ve [facility] ANTI HCV Non-reacti ve [facility] Blood specimen (specimen) BLOOD SPECIMEN / Unknown 10/02/2012 3:43 PM CDT 10/02/2012 3:38 PM CDT Jose Gaviria MD SEND OUTS Final R esult [facility] INTERNAL ZIP [address] [place] [address] * ANTI HIV 1/2 [54594.0] (06/09/2010 10:04 AM CDT) ANTI HIV 1/2 Non-reacti ve [facility] Blood specimen (specimen) BLOOD SPECIMEN / Unknown 06/09/2010 10:04 AM CDT 06/09/2010 9:58 AM CDT us Jose Gaviria MD SEND OUTS Final R esult [facility] INTERNAL ZIP [id number] [address] from Last 3 Months or Most Recently Relevant to Health Maintenance Additional Health Concerns Infection Onset Date Last Indicated COVID History Comment:COVID+ test result dates: 01/23/21 Unknown location, was symptomatic Patient met COVID clearance criteria on 02/09/21 For evaluation of subsequent COVID+ results, refer to the algorithm on the AKN: Isolation Precaution Recommendations for Patients with History of COVID-19 Infection. 02/09/2021 02/09/2021 Insurance [facility] [address] [place] [id number] * Guarantor: [facility] CONTRACT,[facility] INPATIENT TO [facility] Account Type Relation to Patient Date of Phone Billing Address Contract [address] [place] [address] KEIKO ANTONIO [id number] Advance Directives * Full Code (Latest Code Status on File) Date Activated Date Inactivated Comments 01/31/2021 7:10 AM 02/09/2021 5:26 PM Question Answer Comments Code Status Discussion: Reviewed Preferences * Full Code Date Activated Date Inactivated Comments 01/28/2021 4:24 PM 01/31/2021 7:03 AM Question Answer Comments Code Status Discussion: Reviewed Preferences * Full Code Date Activated Date Inactivated Comments 01/25/2017 6:44 PM 01/26/2017 7:02 PM * Full Code Date Activated Date Inactivated Comments 09/19/2015 10:26 PM 09/20/2015 8:17 PM * Full Code Date Activated Date Inactivated Comments 07/17/2012 6:45 AM 07/17/2012 3:38 PM Care Teams Department Chairperson Relationship Specialty Start Date End Date Jose Gaivria MD [address] [facility] [address] [place] [address] PCP - General 04/05/07 Terrence Patton MD [address] [place] [id number] Psychiatry 02/03/24
--- OUTSIDE RECORDS SUMMARY | 2024-08-06 17:10 | XMS_ITS | Clinical Summary ---
Author Organization [facility] Address [address] [place] [address] Care Team Providers Care Casting Agent Name Role Phone Unavailable Primary Care Provider Unavailabl e Source Comments Patient records contain information from all sites at [facility]. For routine questions regarding patient records, call [phone] during business hours, M-F 8:00 AM - 5:00 PM Central Time. Record requests for emergency care only can be directed to [phone] at any time.[facility] Allergies Active Allergy Reactions Criticality Noted Date Comments Hydrocodone-Acetaminoph en Hives (Reselect Reaction),Itching,Ra sh,Shortness of breath (Reselect Reaction) 02/18/2009 Lavender Oil Itching 03/08/2023 Maitake Mushroom Diarrhea 03/08/2023 Morphine Other (see comments) High 10/06/2006 Occurred during her tonsil surgery at age 17, could not remember the next 3 days, was sent home after the surgery [id number] Antimigraine Agents Other (see comments) 09/20/2015 RCVS - severe headache Medications * This document contains information received from the source organization and may not represent a complete record from that organization. melatonin 5 mg tablet Take 5 mg by mouth at bedtime as needed. 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 Yes 03/20/2024 Exercise Vital Sign Answer Date Recorde d On average, how many days pe r week do you engage in moderate to strenuous exercise (like a brisk walk)? 2 days 03/20/2024 On average, how many minutes do you engage in exercise at this level? 60 min 03/20/2024 Hunger Vital Sign Answer Date Recorded Within the past 12 months, y ou worried that your food would run out before you got the money to buy more. Often true 03/20/19 Within the past 12 months, t he food you bought just didn't last and you didn't have money to get more. Often true 03/20/2024 PRAPARE - Transportation Answer Date Re corded In the past 12 months, has l ack of transportation kept you from medical appointments or from getting medications? No 03/01 In the past 12 months, has l ack of transportation kept you from meetings, work, or from getting things needed for daily living? Yes 03/20/2024 Nutrition Answer Date Recorded On average, how many serving s of fruits and vegetables do you eat per day (serving size is equal to 1 cup or approximately the size of a tennis ball)? 3-5 03/20/2024 Dental Answer Date Recorded Dental: Regular Dentist No 03/20/19 Employment Answer Date Recorded Employment status Unemployed/not in th e paid workforce but seeking employment 03/20/2024 Housing Stability Answer Date Recorded What is your living situation today? I h ave a place to live today, but I am worried about losing it in the future 03/20/2024 Comments Unknown Sex and Gender Information Value Date Recorded Sex Assigned at Female 03/20/2024 10:22 AM DIRECTOR OF EDUCATION AND TRAINING Legal Sex Female 4:09 PM DIRECTOR OF EDUCATION AND TRAINING Gender Identity Female 03/20/2024 10:22 AM DIRECTOR OF EDUCATION AND TRAINING Sexual Orientation Don't know 03/20/2024 10 :22 AM DIRECTOR OF EDUCATION AND TRAINING Last Filed Vital Signs Vital Sign Reading Time Taken Comments Blood Pressure 124/81 03/20/2024 10:25 AM DIRECTOR OF EDUCATION AND TRAINING Pulse 76 03/20/2024 10:25 AM DIRECTOR OF EDUCATION AND TRAINING Temperature - - Respiratory Rate - - Oxygen Saturation - - Inhaled Oxygen Concentration - - Weight 80.1 kg (176 lb 9.4 oz) 03/20/2024 10:25 AM DIRECTOR OF EDUCATION AND TRAINING Height - - Body Mass Index - - Plan of Treatment Health Maintenance Due Date Last Done Comments Cervical/Vaginal Cancer Screening 1984 HIV Screening 1984 Hepatitis C Screening 1984 Tobacco Cessation counseling 1984 COVID-19 Vaccine (2023- season) 2023 Influenza Vaccine (#1) 2023 7, 12/17/2015, 11/01/2014, Additional history exists Depression Screening (Annual PHQ-2) 02/29/2024 Lipid (Cholesterol) Screening 07/01/2027 06/30/2022 DTaP,Tdap,and Td Vaccines (3 - Td or Tdap) 06/30/2032 06/30/2022, 06/08/2006 Hepatitis B Vaccines Completed 10/04/2008, 10/26/2001, 10/26/2001, Additional history exists HPV Vaccines Completed 12/06/2008, 07/29, 06/08/2006 IPV Vaccines Aged Out No longer eligi ble based on patient's age to complete this topic Pneumococcal vaccine (0-49 years) Aged Out No longer eligible based on patient's age to complete this topic Medical Devices Implanted Type Area Yarn Tester Device Identifier Shelf Expiration Date Model / Serial / Lot Mesh Or Patch Mesh or Patch N/A: Stomach Insurance ARE
--- NOTE | 2024-08-06 17:33 | ED_ITS ---
HPI - General Adult General Chief complaint: Abdominal Pain Stated complaint: pain all over/confused/body weakness Time Seen by Provider: 08/06/24 17:24 History of Present Illness HPI narrative: Pt reports onset today of sharp lower right abd pain, this radiates to back. Feels fatigued, dizzy . Hx of cholecystectomy . Dx lupus, reynauds, autoimmune hepatitis, pancreatitis. Hypotensive in triage. 38-year-old woman presenting to the emergency department with concern of right- sided abdominal pain. Apparently this morning began to have some frequency and than hematuria and then right flank area pain. Pain is described also in her abdomen as a sense of pressure. Feels very tired. Feels lightheaded. History of cholecystectomy and then 2 weeks later noting pancreatitis apparently from gallstone. Notes diagnosis of lupus and Raynaud's and autoimmune hepatitis. She says she has been experiencing itch without noticeable rash over the last month or so. She is seems as related to her ?liver failure?. Has not had a fever. Blood pressure is noted to be low on triage and with comparison with prior visits this would not appear to be her baseline. Denies substance ingestion. Did vomit once in her mouth she said earlier but she swallowed it. Does not feel she needs anything for nausea. Later does acknowledge that took an edible yesterday apparently to help with some of these symptoms. Related Data Home Medications ?Medication ?Instructions ?Recorded ?Confirmed No Known Home Medications 12/13/22 03/0 08/21 Allergies Allergy/AdvReac Type Severity Reaction Status Date / Time acetaminophen (From Vicodin) Allergy Severe Anaphylaxis Verified 05/04/23 13:58 hydrocodone (From Vicodin) Allergy Severe Anaphylaxis Verified 05/04/23 13:58 morphine Allergy Severe heart stops Verified 05/04/23 13:58 Review of Systems Status of ROS: Reports: 6 or more systems reviewed and unremarkable except as noted in History and below [facility] Social History Smoking Status: Former smoker Do you use any of these nicotine containing products: None Second hand tobacco smoke exposure: Yes How often do you have a drink containing alcohol: monthly or less How many standard drinks containing alcohol do you have on a typical day: 1 or 2 How often do you have six or more drinks on one occasion: Never AUDIT-C Alcohol total score: 1 Non-prescribed substance use: marijuana (any form) service: No Exam Narrative: Exam Narrative: Does appear sleepy. Subtly slurring. Alerts though for this conversation. Cranial nerves 2-12 are intact. Mucous membranes do not look particularly pale. Moving all extremities without difficulty. Appears well perfused. Abdomen has large written tattoo centrally. She is diffusely mildly tender without peritoneal signs. Lungs are clear. I do not see rash than some hyperpigmented macules scattered on the right neck anteriorly. Const: Vital Signs, click to edit/add: Vital Signs - 24 hr 08/06/24 17:16 08/06/24 17:26 08/06/24 17:46 Temperature 98.2 F Pulse Rate 73 82 Pulse Rate [Pulse Oximeter] 73 Respiratory Rate 20 12 26 H Blood Pressure 99/60 94/62 Blood Pressure [Ri ght Upper Arm] 85/58 L Pulse Oximetry 96 94 96 Oxygen Delivery Me thod Room Air 08/06/24 17:47 08/06/24 18:00 08/06/24 18:01 Temperature Pulse Rate 85 82 79 Pulse Rate [Pulse Oximeter] Respiratory Rate 21 19 19 Blood Pressure 94/65 Blood Pressure [Ri ght Upper Arm] Pulse Oximetry 97 98 97 Oxygen Delivery Me thod 08/06/24 18:15 08/06/24 18:16 08/06/24 18:17 Temperature Pulse Rate 78 81 77 Pulse Rate [Pulse Oximeter] Respiratory Rate 9 L Blood Pressure 109/69 Blood Pressure [Ri ght Upper Arm] Pulse Oximetry 99 98 99 Oxygen Delivery Me thod 08/06/24 18:30 08/06/24 18:31 08/06/24 18:35 Temperature Pulse Rate 78 77 Pulse Rate [Pulse Oximeter] Respiratory Rate Blood Pressure 115/70 113/68 Blood Pressure [Ri ght Upper Arm] Pulse Oximetry 99 98 Oxygen Delivery Me thod 08/06/24 18:45 08/06/24 18:46 08/06/24 18:47 Temperature Pulse Rate 81 80 80 Pulse Rate [Pulse Oximeter] Respiratory Rate 20 Blood Pressure 120/73 Blood Pressure [Ri ght Upper Arm] Pulse Oximetry 96 97 96 Oxygen Delivery Me thod 08/06/24 19:00 08/06/24 19:01 08/06/24 19:15 Temperature Pulse Rate 77 79 79 Pulse Rate [Pulse Oximeter] Respiratory Rate 21 Blood Pressure 119/76 Blood Pressure [Ri ght Upper Arm] Pulse Oximetry 96 96 96 Oxygen Delivery Me thod 08/06/24 19:16 08/06/24 19:30 08/06/24 19:31 Temperature Pulse Rate 81 78 77 Pulse Rate [Pulse Oximeter] Respiratory Rate Blood Pressure 114/72 119/74 Blood Pressure [Ri ght Upper Arm] Pulse Oximetry 95 97 96 Oxygen Delivery Me thod 08/06/24 19:45 08/06/24 19:46 08/06/24 20:00 Temperature Pulse Rate 82 80 80 Pulse Rate [Pulse Oximeter] Respiratory Rate Blood Pressure 110/72 Blood Pressure [Ri ght Upper Arm] Pulse Oximetry 96 95 96 Oxygen Delivery Me thod 08/06/24 20:01 08/06/24 20:02 08/06/24 20:15 Temperature Pulse Rate 81 81 79 Pulse Rate [Pulse Oximeter] Respiratory Rate 22 27 H Blood Pressure 111/69 Blood Pressure [Ri ght Upper Arm] Pulse Oximetry 95 95 95 Oxygen Delivery Me thod 08/06/24 20:16 08/06/24 20:30 08/06/24 20:31 Temperature Pulse Rate 79 81 83 Pulse Rate [Pulse Oximeter] Respiratory Rate 19 21 15 Blood Pressure 107/69 110/66 Blood Pressure [Ri ght Upper Arm] Pulse Oximetry 96 96 96 Oxygen Delivery Me thod 08/06/24 20:32 08/06/24 20:45 08/06/24 20:46 Temperature Pulse Rate 82 84 82 Pulse Rate [Pulse Oximeter] Respiratory Rate 21 23 Blood Pressure 111/72 Blood Pressure [Ri ght Upper Arm] Pulse Oximetry 96 96 96 Oxygen Delivery Me thod 08/06/24 21:00 08/06/24 21:01 Temperature Pulse Rate 82 92 Pulse Rate [Pulse Oximeter] Respiratory Rate 28 H 16 Blood Pressure 110/68 Blood Pressure [Ri ght Upper Arm] Pulse Oximetry 96 96 Oxygen Delivery Me thod Documenting provider has reviewed patient's vital signs: yes Course Vital Signs Vital signs: Initial Vital Signs Temperature 98.2 F 08/06/24 17:16 Temperature Source Temporal Artery Scan 08/06/24 17:16 Pulse Rate 73 08/06/24 17:16 Respiratory Rate 20 08/06/24 17:16 Blood Pressure 85/58 L 08/06/24 17:16 Blood Pressure Mean 67 L 08/06/24 17:16 Blood Pressure Position Sitting 08/06/24 17:16 Pulse Oximetry 96 08/06/24 17:16 Oxygen Delivery Method Room Air 08/06/24 17:16 Vital Signs Temperature 98.2 F 08/06/24 17:16 Pulse Rate 73 08/06/24 17:16 Respiratory Rate 20 08/06/24 17:16 Blood Pressure 85/58 L 08/06/24 17:16 Pulse Oximetry 96 08/06/24 17:16 Oxygen Delivery Method Room Air 08/06/24 17:16 Temperature 98.2 F 08/06/24 17:16 Pulse Rate 70 08/06/24 21:46 Respiratory Rate 18 08/06/24 21:46 Blood Pressure 114/71 08/06/24 21:46 Pulse Oximetry 96 08/06/24 21:46 Oxygen Delivery Method Room Air 08/06/24 17:16 Medications Administered Medications: Discontinued Medications Generic Name Dose Route Start Last Admin Trade Name Freq PRN Reason Stop Dose Admin Sodium Chloride 1,000 mls @ 1,000 mls/hr 08/06/24 17:41 08/06/24 18:36 0.9 % Sodium Chloride 1000 Ml IV 08/06/24 18:40 Infused .Q1H ONE Infusion Ceftriaxone Sodium 1 gm/ 100 mls @ 200 mls/hr 08/06/24 20:07 08/06/24 20:38 Sodium Chloride IVPB 08/06/24 20:08 Infused ONCE ONE Infusion Ketorolac Tromethamine 30 mg 08/06/24 21:14 08/06/24 21:24 Ketorolac 30 Mg/Ml Inj IVP 08/06/24 21:15 30 mg ONCE ONE Administration Medical Decision Making MDM Narrative Medical decision making narrative: Does appear like she would need something for pain. Discussed limited options though due to potential concern of bleeding, noted allergies and she would w orry about even acetaminophen and her liver. She says she will tough it out at this point. I do not know if this is some hypotensive response to pain like a vasovagal event or she truly hemorrhaging somewhere or septic. Urinary tract infection or kidney stone perhaps. Nephritis? I would anticipate contrasted abdominal imaging. Would like to know renal function 1st. Blood pressures improved a little bit to 99/60 during our conversation. Initiating fluid bolus. Initial lactate is reassuring at 1.2. CT scan of abdomen and pelvis with contrast independently reviewed by me does show thickening of the bladder wall particular is noticeable Radiology over-read below noting also inflammation of the right ureter little more than the left. INDICATION: Right-sided flank pain. TECHNIQUE: CT abdomen and pelvis acquired with 100 cc Isovue 370 IV contrast. COMPARISON: November 30, 2019. FINDINGS: Lower chest: Scattered atelectasis. Liver: Unremarkable. Normal in size and attenuation. No suspicious masses. Gallbladder and bile ducts: Prior cholecystectomy. Pancreas: Unremarkable. No mass or inflammation. Spleen: Unremarkable. Normal in size. No masses. Adrenal glands: Unremarkable. No nodules. Kidneys: Mild right greater than left ureteral inflammation. No hydronephrosis. GI tract: Mild colonic stool burden.. Normal in caliber. No sign of mass or inflammation. Normal appendix. Vasculature: Abdominal aorta is normal in caliber. Mesenteric arteries are patent. Lymph nodes: No lymphadenopathy. Peritoneum/Abdominal Wall: Unremarkable. No sign of mass or infiltration. No free air or significant free fluid. Pelvis: Mildly distended bladder with moderate circumferential wall thickening. Small volume free fluid in the pelvis, likely reactive. Bones: Unremarkable for age. IMPRESSION: Moderate circumferential bladder wall thickening with mild right greater than left ureteral inflammation. Constellation of findings are concerning for urinary tract infection with ascending infection. No obstructive uropathy or drainable fluid collections. Please note that all CT scans at this facility use dose modulation, iterative reconstruction, and/or weight-based dosing when appropriate to reduce radiation dose to as low as reasonably achievable. Dictated by Jacky Pradhan MD @ 08/06/2024 9:47:39 PM Labs are generally reassuring. Urine looks to be infected; without nitrite. Given Rocephin in the emergency department. Overall she is improved. Discussed findings in imaging with Annalisa. Significant physical reaction to what looks to be a worsening urinary tract infection. Improved and stable vitals. See patient discharge plan for further discussion Focus on hydration with unsweetened beverages/water. Can take up to 800 mg of ibuprofen or up to 1000 mg of acetaminophen per dose. You did receive Rocephin here in the emergency department along with a L of normal saline IV. Would like you to continue with ciprofloxacin. Urine and blood cultures are pending and might prompt a call to make a change in treatment. Prescribing ciprofloxacin and Percocet as discussed from [facility]. Remember that in addition to oxycodone, each tablet of Percocet contains 325 mg of acetaminophen. Would consider taking a dose of ciprofloxacin yet tonight. Return for uncontrolled pain, intractable vomiting, worsening symptoms like fever, worsening lightheadedness. Medical Records Medical records reviewed: Yes I reviewed the patient's medical records Lab Data Lab results reviewed: Yes I reviewed the patient's lab results Labs: Lab Results 08/06/24 08/06/24 08/06/24 Range/Units 17:30 18:30 18:40 WBC 9.44 (4.50-11.00) K/uL RBC 4.11 (4.00-5.20) m/uL Hgb 11.2 L (12.0-16.0) gm/dL Hct 35.2 (33.0-51.0) % MCV 86 (80-100) fL MCH 27 (26-34) pg MCHC 32 (32-36) gm/dL RDW Coeff of Melina 15.0 (11.5-15.5) % Plt Count 232 (140-440) K/uL Neut % (Auto) 74.2 H (42.0-72.0) % Lymph % (Auto) 19.8 L (20-44) % [place] % (Auto) 5.2 (0.0-11.0) % Eos % (Auto) 0.6 (0.0-7.0) % Baso % (Auto) 0.1 (0.0-3.0) % Neut # (Auto) 7.00 (1.7-7.0) K/uL Lymph # (Auto) 1.90 (0.90-2.90) K/uL [place] # (Auto) 0.50 (0.00-0.90) K/UL Eos # (Auto) 0.06 (0.00-0.50) K/uL Baso # (Auto) 0.01 (0.00-0.30) K/uL Abs Immat Gran (auto) 0.01 (0.00-0.30) K/uL Imm/Tot Granulo (auto) 0.1 % Sodium 135 (135-149) mmol/L Potassium 3.5 L (3.6-5.1) mmol/L Chloride 104 (96-114) mmol/L Carbon Dioxide 26 (20-32) mmol/L Anion Gap 5 L (7-15) mEq/L BUN 19 (5-24) mg/dL Creatinine 0.8 (0.5-1.5) mg/dL Estimated Creat Clear 78.10 Estimated GFR 96 ml/min Glucose 120 H (60-115) mg/dL Lactate 1.2 (0.5-1.9) mmol/L Calcium 8.5 (8.4-10.6) mg/dL Total Bilirubin 0.2 (0.1-1.5) mg/dL Direct Bilirubin 0.1 (0.0-0.5) mg/dL AST 37 H (12-35) U/L ALT 27 (4-35) U/L Alkaline Phosphatase 57 (40-150) U/L C-Reactive Protein 1.1 H (0.5-1.0) mg/dL Total Protein 7.5 (6.0-8.3) g/dL Albumin 3.7 (3.3-5.0) g/dL Lipase 62 (23-300) U/L Urine Color Yellow (Yellow) Urine Appearance Cloudy A (Clear) Urine pH 6.0 (5.0-8.5) Ur Specific [place] 1.015 (1.000-1.030) Urine Protein 2+ A (Negative) Urine Glucose (UA) Negative (Negative) Urine Ketones Negative (Negative) Urine Blood 3+ A (Negative) Urine Nitrite Negative (Negative) Urine Bilirubin Negative (Negative) Urine Urobilinogen 0.2 (0.2-1.0) Ur Leukocyte Esterase 3+ A (Negative) Urine RBC 25-50 A (0-2) Urine WBC 50-100 A (0-5) Ur Squamous Epith Cells None (None-Few) Urine Bacteria Moderate A (None) Urine HCG, Qual Negative (Negative) Urine Opiates Screen (Negative) Ur Oxycodone Screen (Negative) Urine Methadone Screen (Negative) Ur Barbiturates Screen (Negative) U Tricyclic Antidepress (Negative) Ur Phencyclidine Scrn (Negative) Ur Amphetamines Screen (Negative) U Methamphetamines Scrn (Negative) U Benzodiazepines Scrn (Negative) Urine Cocaine Screen (Negative) U Marijuana (THC) Screen (Negative) Ur Drug Screen Comment SARS-CoV-2 (PCR) Negative SARS-CoV-2 (Negative) Influenza Type A (PCR) Negative PCR FLU A (Negative) Influenza Type B (PCR) Negative PCR FLU B (Negative) 08/06/24 Range/Units 18:48 WBC (4.50-11.00) K/uL RBC (4.00-5.20) m/uL Hgb (12.0-16.0) gm/dL Hct (33.0-51.0) % MCV (80-100) fL MCH (26-34) pg MCHC (32-36) gm/dL RDW Coeff of Melina (11.5-15.5) % Plt Count (140-440) K/uL Neut % (Auto) (42.0-72.0) % Lymph % (Auto) (20-44) % [place] % (Auto) (0.0-11.0) % Eos % (Auto) (0.0-7.0) % Baso % (Auto) (0.0-3.0) % Neut # (Auto) (1.7-7.0) K/uL Lymph # (Auto) (0.90-2.90) K/uL [place] # (Auto) (0.00-0.90) K/UL Eos # (Auto) (0.00-0.50) K/uL Baso # (Auto) (0.00-0.30) K/uL Abs Immat Gran (auto) (0.00-0.30) K/uL Imm/Tot Granulo (auto) % Sodium (135-149) mmol/L Potassium (3.6-5.1) mmol/L Chloride (96-114) mmol/L Carbon Dioxide (20-32) mmol/L Anion Gap (7-15) mEq/L BUN (5-24) mg/dL Creatinine (0.5-1.5) mg/dL Estimated Creat Clear Estimated GFR ml/min Glucose (60-115) mg/dL Lactate (0.5-1.9) mmol/L Calcium (8.4-10.6) mg/dL Total Bilirubin (0.1-1.5) mg/dL Direct Bilirubin (0.0-0.5) mg/dL AST (12-35) U/L ALT (4-35) U/L Alkaline Phosphatase (40-150) U/L C-Reactive Protein (0.5-1.0) mg/dL Total Protein (6.0-8.3) g/dL Albumin (3.3-5.0) g/dL Lipase (23-300) U/L Urine Color (Yellow) Urine Appearance (Clear) Urine pH (5.0-8.5) Ur Specific [place] (1.000-1.030) Urine Protein (Negative) Urine Glucose (UA) (Negative) Urine Ketones (Negative) Urine Blood (Negative) Urine Nitrite (Negative) Urine Bilirubin (Negative) Urine Urobilinogen (0.2-1.0) Ur Leukocyte Esterase (Negative) Urine RBC (0-2) Urine WBC (0-5) Ur Squamous Epith Cells (None-Few) Urine Bacteria (None) Urine HCG, Qual (Negative) Urine Opiates Screen Negative (Negative) Ur Oxycodone Screen Negative (Negative) Urine Methadone Screen Negative (Negative) Ur Barbiturates Screen Negative (Negative) U Tricyclic Antidepress Negative (Negative) Ur Phencyclidine Scrn Negative (Negative) Ur Amphetamines Screen Negative (Negative) U Methamphetamines Scrn Negative (Negative) U Benzodiazepines Scrn Negative (Negative) Urine Cocaine Screen Negative (Negative) U Marijuana (THC) Screen POSITIVE A (Negative) Ur Drug Screen Comment See Note SARS-CoV-2 (PCR) (Negative) Influenza Type A (PCR) (Negative) Influenza Type B (PCR) (Negative) ECG Data Attestation: I personally reviewed and interpreted this ECG as follows: (Normal sinus rhythm at a rate of 76) Discharge Plan Discharge Clinical Impression: UTI (urinary tract infection), Abdominal pain Patient Disposition: Home w/ Parent or Adult Condition: Improved Additional Instructions: Focus on hydration with unsweetened beverages/water. Can take up to 800 mg of ibuprofen or up to 1000 mg of acetaminophen per dose. You did receive Rocephin here in the emergency department along with a L of normal saline IV. Would like you to continue with ciprofloxacin. Urine and blood cultures are pending and might prompt a call to make a change in treatment. Prescribing ciprofloxacin and Percocet as discussed from [facility]. Remember that in addition to oxycodone, each tablet of Percocet contains 325 mg of acetaminophen. Would consider taking a dose of ciprofloxacin yet tonight. Return for uncontrolled pain, intractable vomiting, worsening symptoms like fever, worsening lightheadedness. Prescriptions: No Action No Known Home Medications Follow Up/Referrals: Provider,Not a Local [Primary Care Provider, Family Practice] Stand Alone Forms: [employer] Info Instructions
[2024-08-06 17:48] LABS: Lactate* 1.2 mmol/L (0.5-1.9)
[2024-08-06 17:57] LABS: Basophils Absolute Auto 0.01 K/uL (0.00-0.30); Basophils Percent Auto 0.1 % (0.0-3.0); Eosinophils Absolute Auto 0.06 K/uL (0.00-0.50); Eosinophils Percent Auto 0.6 % (0.0-7.0); Hematocrit* 35.2 % (33.0-51.0); Hemoglobin* 11.2 gm/dL (12.0-16.0); Immature Granulocytes Abs Auto 0.01 K/uL (0.00-0.30); Immature Granulocytes Pct Auto 0.1 %; Lymphocytes Percent Auto 19.8 % (20-44); Mean Corpuscular HGB Conc 32 gm/dL (32-36); Mean Corpuscular Hemoglobin 27 pg (26-34); Mean Corpuscular Volume 86 fL (80-100); Monocytes Percent Auto 5.2 % (0.0-11.0); Neutrophils Percent Auto 74.2 % (42.0-72.0); Platelet Count* 232 K/uL (140-440); Red Blood Count* 4.11 m/uL (4.00-5.20); White Blood Count* 9.44 K/uL (4.50-11.00)
[2024-08-06 18:00] LABS: Slide Review Reflex No
[2024-08-06] MEDS: 0.9 % SODIUM CHLORIDE 1000 ml 1,000 ML IV (18:03)
[2024-08-06 18:11] LABS: Albumin* 3.7 g/dL (3.3-5.0); Chloride* 104 mmol/L (96-114)
[2024-08-06 18:12] LABS: Potassium* 3.5 mmol/L (3.6-5.1); Sodium* 135 mmol/L (135-149)
[2024-08-06 18:14] LABS: Blood Urea Nitrogen* 19 mg/dL (5-24); Creatinine* 0.8 mg/dL (0.5-1.5); Estimated Glomerular Filt Rate 96 ml/min
[2024-08-06 18:15] LABS: Alanine Aminotransferase* 27 U/L (4-35); Alkaline Phosphatase* 57 U/L (40-150); Anion Gap 5 mEq/L (7-15); Aspartate Amino Transferase* 37 U/L (12-35); Bilirubin Direct* 0.1 mg/dL (0.0-0.5); Bilirubin Total* 0.2 mg/dL (0.1-1.5); Calcium* 8.5 mg/dL (8.4-10.6); Carbon Dioxide* 26 mmol/L (20-32); Glucose* 120 mg/dL (60-115); Lipase* 62 U/L (23-300); Total Protein* 7.5 g/dL (6.0-8.3)
[2024-08-06 18:18] LABS: C Reactive Protein* 1.1 mg/dL (0.5-1.0)
[2024-08-06 18:49] LABS: Appearance Urine Cloudy (Clear); Bilirubin Urine Negative (Negative); Blood Urine 3+ (Negative); Color Urine Yellow (Yellow); Glucose Urine Negative (Negative); Ketones Urine Negative (Negative); Leukocyte Esterase Urine 3+ (Negative); Nitrite Urine Negative (Negative); Protein Urine 2+ (Negative); Specific Gravity Urine 1.015 (1.000-1.030); Urobilinogen Urine 0.2 (0.2-1.0)
[2024-08-06 18:52] LABS: Ur HCG Qualitative* Negative (Negative)
[2024-08-06 18:57] LABS: Bacteria Urine Moderate; RBC Urine 25-50 (0-2); WBC Urine 50-100 (0-5)
[2024-08-06 19:01] LABS: Amphetamine Screen Urine Negative (Negative); Barbiturate Screen Urine Negative (Negative); Benzodiazepines Screen Urine Negative (Negative); Cannabinoid Screen Urine POSITIVE (Negative); Cocaine Screen Urine Negative (Negative); Methadone Screen Urine Negative (Negative); Methamphetamines Screen Urine Negative (Negative); Opiate Screen Urine Negative (Negative); Oxycodone Screen Urine Negative (Negative); Phencyclidine Screen Urine Negative (Negative); Tricyclic Antidepressant Urine Negative (Negative)
[2024-08-06 19:22] LABS: PCR FLU A Negative PCR FLU A (Negative); PCR FLU B Negative PCR FLU B (Negative); SARS PCR* Negative SARS-CoV-2 (Negative)
[2024-08-06] MEDS: cefTRIAXone 1 GM in 0.9 % SODIUM CHLORIDE Mini-bag 100 ML IVPB (20:19)
--- NOTE | 2024-08-06 21:14 | CRLHL7_ITS ---
For Patients: As a result of the Century Cures Act, medical imaging exams and procedure reports are released immediately into your electronic medical record. You may view this report before your referring provider. If you have questions, please contact your health care provider. INDICATION: Right-sided flank pain. TECHNIQUE: CT abdomen and pelvis acquired with 100 cc Isovue 370 IV contrast. COMPARISON: November 30, 2019. FINDINGS: Lower chest: Scattered atelectasis. Liver: Unremarkable. Normal in size and attenuation. No suspicious masses. Gallbladder and bile ducts: Prior cholecystectomy. Pancreas: Unremarkable. No mass or inflammation. Spleen: Unremarkable. Normal in size. No masses. Adrenal glands: Unremarkable. No nodules. Kidneys: Mild right greater than left ureteral inflammation. No hydronephrosis. GI tract: Mild colonic stool burden.. Normal in caliber. No sign of mass or inflammation. Normal appendix. Vasculature: Abdominal aorta is normal in caliber. Mesenteric arteries are patent. Lymph nodes: No lymphadenopathy. Peritoneum/Abdominal Wall: Unremarkable. No sign of mass or infiltration. No free air or significant free fluid. Pelvis: Mildly distended bladder with moderate circumferential wall thickening. Small volume free fluid in the pelvis, likely reactive. Bones: Unremarkable for age. IMPRESSION: Moderate circumferential bladder wall thickening with mild right greater than left ureteral inflammation. Constellation of findings are concerning for urinary tract infection with ascending infection. No obstructive uropathy or drainable fluid collections. Please note that all CT scans at this facility use dose modulation, iterative reconstruction, and/or weight-based dosing when appropriate to reduce radiation dose to as low as reasonably achievable. Dictated by Jacky Pradhan MD @ 08/06/2024 9:47:39 PM (Electronically Signed)
[2024-08-06] MEDS: KETOROLAC 30 MG/ML inj IVP (21:24)
== END 2024-08-06 22:37 | disposition home or self-care (01) ==
PROVIDERS: Emergency Provider Family Medicine
DX: N39.0 Urinary tract infection, site not specified (principal)
CPT/HCPCS: 36415; 74177; 80048; 80076; 80306; 81001; 81025; 83605; 83690; 85025; 86140; 87040; 87086; 87637; 93005; 96365; 96375; 99284; J0696; J1885; J7030; Q9967

== ENCOUNTER 2025-01-02 23:10 | Emergency (ER) | payer OTHER, SELFPAY ==
[2025-01-02 23:10] VITALS: BP 125/70; PULSE 78; RESP 18; TEMP 36.7; O2SAT 99; BMI 36.7
--- OUTSIDE RECORDS SUMMARY | 2025-01-02 23:13 | XMS_ITS | Clinical Summary ---
Author Organization [facility] Address [address] [place] [address] Care Team Providers Care Back Closer Name Role Phone Jose Gaviria MD Primary Care Provider Terrence Patton MD Unavailable [phone] Allergies Active Allergy Reactions Criticality Noted Date [...] Pt. able to take liquid children's tylenol. Pveqgddz-8-Dm5 Antimigraine Agents Other - Describe In Comment [...] PM Assessment & Plan (02/21/2012 11:37 AM MACHINIST): Declines flu vaccine. Sheryl Smith LPN.......... 02/21/2012 [...] first 01/18/2007 03/08/2008 Incarcerated umbilical hernia 12/29/2017 Immunizations Immunization Administration Dates Next Due HIB [...] on file Legal Sex Female 5:54 AM MACHINIST Gender Identity Not on file Sexual Orientation [...] N Livin g Christine Alex lson Delivery Location[facility] Comments:shoulder dyst ocia, PPH 2008 Term 40w 0d 3.18 kg (7 lb) M Vag None N Livin g Joshua Dasho lson Delivery Location:[facility] 2010 Term 40w 3d 3.18 kg (7 lb) M Vag None N Livin g 9 9 Cristofer Alex lson Delivery Location:[facility] Comments:unassisted de livery, into bed 2012 Term 39w 4d 2.67 kg (5 lb 14.2 oz) M Vag Livin g 9 9 HEARD, BABY BOY Delivery Location:[facility] Last Filed Vital Signs Vital Sign Reading [...] Health Maintenance Due Date Last Done Comments Influenza Vaccine (#1) 2024 7, 12/17/2015, 11/01/2014, Additional history exists BMI (ht and wt on same day) for age 18+ 06/18/2025 06/18/2024, 02/10/2024, 06/30/2022, Additional history exists Depression screening for age 12+ 06/25/2025 06/25/2024, 05/23/2024, 04/09/2024, Additional history exists Pap test for age 21-65 07/01/2027 3, 06/30/2022, 12/27/2011, Additional history exists Colonoscopy through age 75 05/02/2030 05/03/2023, Tetanus booster 06/30/2032 06/30/2022, 06/08/2006 RSV vaccine for adults or (1 - 1-dose 75+ series) 09/06/2059 Hepatitis B series for 19+ Completed 10/04, 10/26/2001, 10/26/2001, Additional history exists HPV series for age 9-45 Addressed 12/07/19, 09/18/2008 (Declined), 08/16/2006, Additional history exists Overridden with the intention of not completing the topic HIV for age 15-65 Completed 06/09/2010, 01/18/2007 Hepatitis C screening for age 18-79 Completed 10/02/2012 Pneumococcal series for age 6-49 Aged Out No longer eligible b ased on patient's age to complete this topic Medical Devices Implanted Type Area Assistant Service Manager Device Identifier Shelf Expiration Date Model / Serial / Lot Mesh Ventral 15cm Ventralight St W/Echo2 - [id number] Implanted:Qty: 1 on 01/25/2017 by Stormy rGegg MD at [facility] N/A: Abdomen [employer] 07/25/2017 [id number] / / [id number] Procedures Procedure Name Priority Date/Time Associated Diagnosis Comments SCAN-COLONOSCOPY 05/03/2023 1:00 PM MACHINIST HPV HIGH RISK Routine 06/30/2022 1:40 PM CDT Screening for cervical cancer ACUTE HEPATITIS PANEL Routine 10/02/2012 3:43 PM CDT LFT elevation ANTI HIV 1/2 Routine 06/09/2010 10:04 AM CDT , subsequent from Last 3 Months or Most Recently Relevant to Health Maintenance Results * SCAN-COLONOSCOPY (05/03/2023 1:00 PM MACHINIST) Narrative Procedure Note Freeman Chávez MD - 05/03/2023 12:00 PM CST [facility] [address] [facility], [address] [place] [address] Patient Name: Annalisa Aragon Gender: Female Exam Date: 05/03/2023 Visit Number: [id number] Age: 37 Years 7 Months : 1985 [...] Years yes Former smoker Race: Preferred Language: Grenadian cc: Jose Gaviria MD cc: Jose Gaviria MD [facility] [phone] Freeman Chávez MD OTHER Final Resul t * HPV HIGH RISK (06/30/2022 1:40 PM CDT) TYPE 16 Negative Negative 07/05/2022 2:10 PM CDT [facility] TYPE 18 Negative Negative 07/05/2022 2:10 PM CDT [facility] OTHER HIGH RISK TYPES Negative Negative 07/05/2022 2:10 PM CDT [facility] Other (Cervical) Non-Blood / Unknown 06/30/2022 1:40 PM CDT 07/02/2022 10:03 AM CDT Narrative [facility] - 07/05/2022 2:10 PM CDT HPV types 16, 18, 31, 33, 35, 39, 45, 51, 52, 56, 58, 59, 66 and 68 DNA were undetectable or below the pre-set threshold. Methodology: Gifty Brianna 4800 HPV Test us Jose Gaviria MD MICROBIOLOGY Final R esult [facility] [address] [place] [address], * ACUTE HEPATITIS PANEL (10/02/2012 3:43 PM CDT) HBSAG Non-reacti ve [facility] IGM ANTI HBC Non-reacti ve [facility] IGM ANTI HAV Non-reacti ve [facility] ANTI HCV Non-reacti ve [facility] Blood specimen (specimen) BLOOD SPECIMEN / Unknown 10/02/2012 3:43 PM CDT 10/02/2012 3:38 PM CDT us Jose Gaviria MD SEND OUTS Final R esult [facility] [place] ZIP [address] [place] [address] * ANTI HIV 1/2 [60854.0] (06/09/2010 10:04 AM CDT) ANTI HIV 1/2 Non-reacti ve [facility] Blood specimen (specimen) BLOOD SPECIMEN / Unknown 06/09/2010 10:04 AM CDT 06/09/2010 9:58 AM CDT us Jose Gaviria MD SEND OUTS Final R esult [facility] INTERNAL ZIP [address] [address] from Last 3 Months or Most Recently Relevant to Health Maintenance Insurance [facility] * Guarantor: [facility] CONTRACT,[facility] INPATIENT TO ANW Account Type Relation to Patient Date of Phone Billing Address Contract [facility] [place] [address] Advance Directives * Full Code (Latest Code [...] 6:45 AM 07/17/2012 3:38 PM Care Teams Back Closer Relationship Specialty Start Date End Date Jose Gaviria MD [address] [address] [place] [address] PCP - General 04/05/07 Terrence Patton MD [address] [place] [address] Psychiatry 02/03/24
--- OUTSIDE RECORDS SUMMARY | 2025-01-02 23:13 | XMS_ITS | Clinical Summary ---
Author Organization [facility] Address [address] [place] [address] Care Team Providers Care User Experience Designer Name Role Phone Unavailable Primary Care Provider Unavailabl e Source Comments Patient records contain information from all sites at [facility]. For routine questions regarding patient records, call [phone] during business hours, M-F 8:00 AM - 5:00 PM Central Time. Record requests for emergency care only can be directed to [phone] at any time.[facility] Allergies Active Allergy Reactions Criticality Noted Date Comments Hydrocodone-Acetaminoph en Hives (Reselect Reaction),Itching,Ra sh,Shortness of breath (Reselect Reaction) 02/18/2009 Lavender Oil Itching 03/08/2023 Maitake Mushroom Diarrhea 03/08/2023 Morphine Other (see comments) High 10/06/2006 Occurred during her tonsil surgery at age 17, could not remember the next 3 days, was sent home after the surgery Epvvvmmw-0-Nl3 Antimigraine Agents Other (see comments) 09/20/2015 RCVS [...] Smoking Tobacco: Former Cigarettes Smokeless Tobacco: Never [facility] Utilities Answer Date Recorded In the past 12 months has th e electric, gas, oil, or water company threatened to shut off services in your home? Yes 03/20/2024 Hunger Vital Sign Answer Date Recorded Within the past 12 months, y ou worried that your food would run out before you got the money to buy more. Often true 03/20/19 25 Within the past 12 months, t he [...] things needed for daily living? Yes 03/20/2024 Housing Stability Answer Date Recorded What is your living situation today? I h ave a place to live today, but I am worried about losing it in the future 03/20/2024 Comments Unknown Sex and Gender Information Value Date Recorded Sex Assigned at Female 03/20/2024 10:22 AM [employer] INTER[employer] Legal Sex Female 4:09 PM [employer] Gender Identity Female 03/20/2024 10:22 AM [employer] Sexual Orientation Don't know 03/20/2024 10 :22 AM [employer] INTER[employer] Last Filed Vital Signs Vital Sign Reading Time Taken Comments Blood Pressure 124/81 03/20/2024 10:25 AM [employer] Pulse 76 03/20/2024 10:25 AM [employer] INTER[employer] Temperature - - Respiratory Rate - - Oxygen Saturation - - Inhaled Oxygen Concentration - - Weight 80.1 kg (176 lb 9.4 oz) 03/20/2024 10:25 AM [employer]ISING INTERNS[employer] Height - - Body Mass Index - - Plan of Treatment Health Maintenance Due Date Last Done Comments Cervical/Vaginal Cancer Screening 1985 HIV Screening 1985 Hepatitis C Screening 1985 Mammogram 1985 Tobacco Cessation counseling 1984 Depression Screening (Annual PHQ-2) 02/29/2024 COVID-19 Vaccine ( season) 2024 Influenza Vaccine (#1) 2024 7, 12/17/2015, 11/01/2014, Additional history exists Lipid (Cholesterol) Screening 07/01/2027 06/30/2022 DTaP,Tdap,and Td [...] this topic Medical Devices Implanted Type Area Injection Mold Technician Device Identifier Shelf Expiration Date Model / Serial / Lot Mesh Or Patch Mesh or Patch N/A: Stomach Insurance [facility]
[2025-01-02 23:29] LABS: Appearance Urine Slightly Cloudy (Clear)
[2025-01-02 23:30] LABS: Ur HCG Qualitative* Negative (Negative)
[2025-01-03] MEDS: ONDANSETRON 2 MG/ML inj 4 MG IVP (00:14)
[2025-01-03 00:16] LABS: Hematocrit* 39.6 % (33.0-51.0); Hemoglobin* 12.9 gm/dL (12.0-16.0); Immature Granulocytes Abs Auto 0.01 K/uL (0.00-0.30); Immature Granulocytes Pct Auto 0.1 %; Lymphocytes Absolute Auto 1.91 K/uL (0.90-2.90); Mean Corpuscular HGB Conc 33 gm/dL (32-36); Mean Corpuscular Hemoglobin 29 pg (26-34); Mean Corpuscular Volume 88 fL (80-100); RDW Coefficient of Variation % 14.3 % (11.5-15.5); Red Blood Count* 4.48 m/uL (4.00-5.20); White Blood Count* 7.16 K/uL (4.50-11.00)
--- OUTSIDE RECORDS SUMMARY | 2025-01-03 00:17 | XMS_ITS | Clinical Summary ---
Author Organization [facility] Address [address] [place] [address] Care Team Providers Care Health And Wellness Sales Consultant Name Role Phone Jose Gaviria MD Primary Care Provider Terrence Patton MD Unavailable [phone] Allergies Active Allergy Reactions Criticality Noted Date [...] Pt. able to take liquid children's tylenol. Vjhtgcll-0-Uv6 Antimigraine Agents Other - Describe In Comment [...] PM Assessment & Plan (02/21/2012 11:37 AM INTELLECTUAL PROPERTY LEGAL ASSISTANT): Declines flu vaccine. Sheryl Smith LPN.......... 02/21/2012 [...] on file Legal Sex Female 5:54 AM INTELLECTUAL PROPERTY LEGAL ASSISTANT Gender Identity Not on file Sexual Orientation [...] N Livin g Christine Alex lson Delivery Location:[facility] Comments:shoulder dyst ocia, PPH 2008 Term 40w 0d 3.18 kg (7 lb) M Vag None N Livin g Joshua Dasho lson Delivery Location:[facility] 2010 Term 40w 3d 3.18 kg (7 lb) M Vag None N Livin g 9 9 Cristofer Alex lson Delivery Location:[facility] Comments:unassisted de livery, into bed 2012 Term 39w 4d 2.67 kg (5 lb 14.2 oz) M Vag Livin g 9 9 HEARD, BABY BOY Delivery Location:[facility] Last Filed Vital Signs Vital Sign [...] this topic Medical Devices Implanted Type Area Aerial Installer Device Identifier Shelf Expiration Date Model / Serial / Lot Mesh Ventral 15cm Ventralight St W/Echo2 - [id number] Implanted:Qty: 1 on 01/25/2017 by Stormy Gregg MD at [facility] N/A: Abdomen [employer] 07/25/2017 [id number] / / [id number] Procedures Procedure Name Priority Date/Time Associated Diagnosis Comments SCAN-COLONOSCOPY 05/03/2023 1:00 PM INTELLECTUAL PROPERTY LEGAL ASSISTANT HPV HIGH RISK Routine 06/30/2022 1:40 PM CDT Screening for cervical cancer ACUTE HEPATITIS PANEL Routine 10/02/2012 3:43 PM CDT LFT elevation ANTI HIV 1/2 Routine 06/09/2010 10:04 AM CDT , subsequent from Last 3 Months or Most Recently Relevant to Health Maintenance Results * SCAN-COLONOSCOPY (05/03/2023 1:00 PM INTELLECTUAL PROPERTY LEGAL ASSISTANT) Narrative Procedure Note Freeman Chávez MD - 05/03/2023 12:00 PM CST [facility] [address] [facility], [address] [place] [address] Patient Name: Annalisa Aragon Gender: Female Exam Date: 05/03/2023 Visit Number: [id number] Age: 37 Years 7 Months : 1985 [...] Years yes Former smoker Race: Preferred Language: Belgian cc: Jose Gaviria MD cc: Jose Gaviria MD [facility] [phone] Freeman Chávez MD OTHER Final Resul t * HPV HIGH RISK (06/30/2022 1:40 PM CDT) TYPE 16 Negative Negative 07/05/2022 2:10 PM CDT [facility] TYPE 18 Negative Negative 07/05/2022 2:10 PM CDT [facility] OTHER HIGH RISK TYPES Negative Negative 07/05/2022 2:10 PM CDT [facility] Other (Cervical) Non-Blood / Unknown 06/30/2022 1:40 PM CDT 07/02/2022 10:03 AM CDT Narrative [facility] - 07/05/2022 2:10 PM CDT HPV types 16, 18, 31, 33, 35, 39, 45, 51, 52, 56, 58, 59, 66 and 68 DNA were undetectable or below the pre-set threshold. Methodology: Gifty Brianna 4800 HPV Test us Jose Gaviria MD MICROBIOLOGY Final R esult [facility] [address] [place] [address], * ACUTE HEPATITIS PANEL (10/02/2012 3:43 PM CDT) HBSAG Non-reacti ve [facility] IGM ANTI HBC Non-reacti ve [facility] IGM ANTI HAV Non-reacti ve [facility] ANTI HCV Non-reacti ve [facility] Blood specimen (specimen) BLOOD SPECIMEN / Unknown 10/02/2012 3:43 PM CDT 10/02/2012 3:38 PM CDT us Jose Gaviria MD SEND OUTS Final R esult [facility] [place]NAL ZIP [address] [place] [address] * ANTI HIV 1/2 [69525.0] (06/09/2010 10:04 AM CDT) ANTI HIV 1/2 Non-reacti ve [facility] Blood specimen (specimen) BLOOD SPECIMEN / Unknown 06/09/2010 10:04 AM CDT 06/09/2010 9:58 AM CDT us Jose Gaviria MD SEND OUTS Final R esult [facility] [place]NAL ZIP [address] [address] from Last 3 Months or Most Recently Relevant to Health Maintenance Insurance [facility] * Guarantor[facility] CONTRACT,[facility] INPATIENT TO ANW Account Type Relation to Patient Date of Phone Billing Address Contract [facility] [place] [address] Advance Directives * Full Code (Latest Code [...] 6:45 AM 07/17/2012 3:38 PM Care Teams Health And Wellness Sales Consultant Relationship Specialty Start Date End Date Jose Gaviria MD [address] [address] [place] [address] PCP - General 04/05/07 Terrence Patton MD [address] [place] [address] Psychiatry 02/03/24
--- OUTSIDE RECORDS SUMMARY | 2025-01-03 00:17 | XMS_ITS | Clinical Summary ---
Author Organization [facility] Address [address] [place] [address] Care Team Providers Care Healthcare Administration Intern Name Role Phone Unavailable Primary Care Provider Unavailabl e Source Comments Patient records contain information from all sites at [facility]. For routine questions regarding patient records, call [phone] during business hours, M-F 8:00 AM - 5:00 PM Central Time. Record requests for emergency care only can be directed to [phone] at any time.[facility] Allergies Active Allergy Reactions Criticality Noted Date Comments Hydrocodone-Acetaminoph en Hives (Reselect Reaction),Itching,Ra sh,Shortness of breath (Reselect Reaction) 02/18/2009 Lavender Oil Itching 03/08/2023 Maitake Mushroom Diarrhea 03/08/2023 Morphine Other (see comments) High 10/06/2006 Occurred during her tonsil surgery at age 17, could not remember the next 3 days, was sent home after the surgery Jyjfqrut-6-Co8 Antimigraine Agents Other (see comments) 09/20/2015 RCVS [...] Smoking Tobacco: Former Cigarettes Smokeless Tobacco: Never [facility] Utilities Answer Date Recorded In the [...] Sex Assigned at Female 03/20/2024 10:22 AM CHILD CARE SUPERVISOR Legal Sex Female 4:09 PM CHILD CARE SUPERVISOR Gender Identity Female 03/20/2024 10:22 AM CHILD CARE SUPERVISOR Sexual Orientation Don't know 03/20/2024 10 :22 AM CHILD CARE SUPERVISOR Last Filed Vital Signs Vital Sign Reading Time Taken Comments Blood Pressure 124/81 03/20/2024 10:25 AM CHILD CARE SUPERVISOR Pulse 76 03/20/2024 10:25 AM CHILD CARE SUPERVISOR Temperature - - Respiratory Rate - - Oxygen Saturation - - Inhaled Oxygen Concentration - - Weight 80.1 kg (176 lb 9.4 oz) 03/20/2024 10:25 AM CHILD CARE SUPERVISOR Height - - Body Mass Index - [...] this topic Medical Devices Implanted Type Area Pear Picker Device Identifier Shelf Expiration Date Model / Serial / Lot Mesh Or Patch Mesh or Patch N/A: Stomach Insurance [facility]
[2025-01-03 00:18] LABS: Slide Review Reflex No
[2025-01-03 00:26] LABS: Albumin* 3.9 g/dL (3.3-5.0)
[2025-01-03 00:27] LABS: Chloride* 102 mmol/L (96-114); Potassium* 3.6 mmol/L (3.6-5.1); Sodium* 132 mmol/L (135-149)
[2025-01-03 00:29] LABS: Alanine Aminotransferase* 34 U/L (4-35); Anion Gap 5 mEq/L (7-15); Aspartate Amino Transferase* 38 U/L (12-35); Blood Urea Nitrogen* 14 mg/dL (5-24); Carbon Dioxide* 25 mmol/L (20-32); Creatinine* 0.7 mg/dL (0.5-1.5); Est. Creatinine Clearance* 88.37; Estimated Glomerular Filt Rate 112 ml/min
[2025-01-03 00:30] LABS: Alkaline Phosphatase* 59 U/L (40-150); Bilirubin Direct* 0.2 mg/dL (0.0-0.5); Bilirubin Total* 0.3 mg/dL (0.1-1.5); Calcium* 8.7 mg/dL (8.4-10.6); Glucose* 89 mg/dL (60-115); Total Protein* 8.0 g/dL (6.0-8.3)
--- NOTE | 2025-01-03 00:41 | CRLHL7_ITS ---
For Patients: As a result of the 21st Century Cures Act, medical imaging exams and procedure reports are released immediately into your electronic medical record. You may view this report before your referring provider. If you have questions, please contact your health care provider. INDICATION: Right flank pain. TECHNIQUE: CT of the abdomen and pelvis acquired with 97 cc Isovue 370 IV contrast. Coronal and sagittal reconstructions. COMPARISON: CT of the abdomen and pelvis 08/06/2024. FINDINGS: Lower chest: Bibasilar atelectasis or scarring. Liver: Normal in size and attenuation. No suspicious masses. Gallbladder and bile ducts: Cholecystectomy. No biliary dilation. Spleen: Unremarkable. Pancreas: Unremarkable. Adrenal glands: Unremarkable. Kidneys, Ureters, and Bladder: Symmetric enhancement. Subcentimeter left renal cortical hypodensity is too small to characterize but unchanged. No hydronephrosis or ureteral dilation. No obstructing urinary calculi. No significant bladder wall thickening. Reproductive organs: Uterus and left adnexa are unremarkable. There is a 1.8 cm rim enhancing corpus luteal cyst in the right ovary (series 2, image 118). GI tract/Peritoneum: No small bowel dilation. Large amount of stool in the ascending and transverse colon. Mild amount of stool in the distal colon. Negative appendix. No intraperitoneal free air. Trace free fluid in the pelvis is likely physiologic. Vasculature: Abdominal aorta is normal in caliber. Mesenteric arteries appear patent. Lymph nodes: No lymphadenopathy. Abdominal Wall: Unremarkable. Bones: Unremarkable for age. IMPRESSION: 1. No acute findings in the abdomen or pelvis. No hydronephrosis or obstructing urinary calculi. 2. Large amount of stool in the proximal colon. 3. Corpus luteal cyst in the right ovary. Please note that all CT scans at this facility use dose modulation, iterative reconstruction, and/or weight-based dosing when appropriate to reduce radiation dose to as low as reasonably achievable. Dictated by Deyanira Mendoza MD @ 01/03/2025 1:30:43 AM (Electronically Signed)
[2025-01-03] MEDS: OxyCODONE/APAP 5-325 TABLET 2 TAB PO (00:42)
[2025-01-03 01:00] VITALS: BP 128/74; PULSE 74; RESP 18; TEMP 36.7; O2SAT 99
[2025-01-03 01:17] VITALS: TEMP 36.7
--- NOTE | 2025-01-03 02:03 | ED.GENADULT ---
HPI - General Adult General Date Seen: 01/03/25 Chief complaint: Flank Pain Stated complaint: right side pain Time Seen by Provider: 01/02/25 23:54 Source: patient Mode of arrival: ambulatory Limitations: no limitations History of Present Illness HPI narrative: Patient is a 39-year-old female who comes in with three days of abdominal and right flank pain. Apparently got worse today and she started having some nausea and vomiting prompting her to come to the emergency department. He has not taken anything for this pain. She has been able to keep down some food and liquid today. She tells me that there is nothing left to vomit. She has not had a bowel movement for the past couple of days. She tells me that she alternates between diarrhea and constipation. She has a history of autoimmune hepatitis but is not on any treatment currently. She does not have a local doctor. Apparently she does not have any follow-up scheduled with [facility] because she had a disagreement with the nurse practitioner that was taking care of her. No black or bloody stools. No hematemesis. No fevers. Related Data Previous Rx's ?Medication ?Instructions ?Recorded polyethylene glycol 3350 17 17 g PO DAILY #510 grams 01/03/25 gram/dose oral powder (Miralax) sennosides 8.6 mg-docusate sodium 2 tab-cap (2 x 8.6-50 mg) PO DAILY 01/03/25 50 mg tablet (Senna-S) #60 tabs Allergies Allergy/AdvReac Type Severity Reaction Status Date / Time hydrocodone (From Vicodin) Allergy Severe Anaphylaxis Verified 01/02/25 23:31 morphine Allergy Severe heart stops Verified 01/02/25 23:31 Review of Systems Narrative: Review of systems is outlined above otherwise noted to be negative. [facility] Medical History (Updated 01/03/25 @ 02:00 by Kwaku Matos MD) ALISON (generalized anxiety disorder) ?F41.1 - Generalized anxiety disorder (ICD-10) PTSD (post-traumatic stress disorder) ?F43.10 - Post-traumatic stress disorder, unspecified (ICD-10) Personality disorder, unspecified ?F60.9 - Personality disorder, unspecified (ICD-10) Lupus Sepsis due to COVID-19 ?U07.1 - COVID-19 (ICD-10) ?A41.89 - Other specified sepsis (ICD-10) Reversible cerebrovascular vasoconstriction syndrome ?I67.841 - Reversible cerebrovascular vasoconstriction syndrome (ICD-10) Acute headache ?R51.9 - Headache, unspecified (ICD-10) Bipolar affective disorder, current episode mild ?F31.9 - Bipolar disorder, unspecified (ICD-10) Depression with anxiety ?F41.8 - Other specified anxiety disorders (ICD-10) OCD (obsessive compulsive disorder) ?F42.9 - Obsessive-compulsive disorder, unspecified (ICD-10) Vitamin D deficiency ?E55.9 - Vitamin D deficiency, unspecified (ICD-10) Raynauds phenomenon ?I73.00 - Raynaud's syndrome without gangrene (ICD-10) Autoimmune hepatitis ?K75.4 - Autoimmune hepatitis (ICD-10) Surgical History (Updated 01/03/25 @ 01:22 by Rich Quintana RN) S/P tonsillectomy and adenoidectomy ?Z90.89 - Acquired absence of other organs (ICD-10) History of cholecystectomy ?Z90.49 - Acquired absence of other specified parts of digestive tract (ICD-10) Social History Smoking Status: Former smoker Do you use any of these nicotine containing products: None Second hand tobacco smoke exposure: Yes How often do you have a drink containing alcohol: monthly or less How many standard drinks containing alcohol do you have on a typical day: 1 or 2 How often do you have six or more drinks on one occasion: Never AUDIT-C Alcohol total score: 1 Non-prescribed substance use: marijuana (any form) service: No Exam Narrative: Exam Narrative: Vitals noted. HEENT: Conjunctiva clear. Posterior pharynx is clear without erythema or exudate. Neck is supple without adenopathy, thyromegaly. Lungs: Clear to auscultation in all hardy. No wheezes, rales, rhonchi. Heart: Regular rate and rhythm without murmur. Abdomen: Soft with diffuse tenderness in the right upper quadrant and right flank. No palpable masses. No guarding, rigidity, rebound. Bowel sounds are normal. Extremities: No cyanosis or edema. Good distal pulses. Skin: No abnormalities noted of the exposed skin. Neurologic: Awake, alert, fully oriented. Neurologic exam is nonfocal. Const: Vital Signs, click to edit/add: Vital Signs - 24 hr 01/02/25 23:10 01/03/25 01:17 Temperature 98.0 F 98.0 F Pulse Rate [Right Pulse Oximeter] 78 Respiratory Rate 18 Blood Pressure [Ri ght Upper Arm] 125/70 Pulse Oximetry 99 Oxygen Delivery Me thod Room Air Course Course ED Course: Patient seen and examined. IV is established and she is given 1 L of normal saline along with Zofran 4 mg IV, Toradol 30 mg IV, and eventually Percocet 5/325 2 tablets orally. This resulted in resolution of her vomiting and near complete resolution of her pain. CBC is normal. Basic metabolic panel shows a sodium 132 but is otherwise normal. LFTs are unremarkable. Urinalysis shows trace ketones and moderate bacteria but is otherwise normal. Reevaluation(s) Reevaluation #1: CT of her abdomen and pelvis with IV contrast is normal with the exception of a large amount of stool in the transverse and ascending colon. Vital Signs Vital signs: Initial Vital Signs Temperature 98.0 F 01/02/25 23:10 Temperature Source Temporal Artery Scan 01/02/25 23:10 Pulse Rate 78 01/02/25 23:10 Respiratory Rate 18 01/02/25 23:10 Blood Pressure 125/70 01/02/25 23:10 Blood Pressure Mean 88 01/02/25 23:10 Blood Pressure Position Sitting 01/02/25 23:10 Pulse Oximetry 99 01/02/25 23:10 Oxygen Delivery Method Room Air 01/02/25 23:10 Vital Signs Temperature 98.0 F 01/02/25 23:10 Pulse Rate 78 01/02/25 23:10 Respiratory Rate 18 01/02/25 23:10 Blood Pressure 125/70 01/02/25 23:10 Pulse Oximetry 99 01/02/25 23:10 Oxygen Delivery Method Room Air 01/02/25 23:10 Temperature 98.0 F 01/03/25 01:17 Pulse Rate 78 01/02/25 23:10 Respiratory Rate 18 01/02/25 23:10 Blood Pressure 125/70 01/02/25 23:10 Pulse Oximetry 99 01/02/25 23:10 Oxygen Delivery Method Room Air 01/02/25 23:10 Medications Administered Medications: Generic Name Dose Route Start Last Admin Trade Name Freq PRN Reason Stop Dose Admin Oxycodone/Acetaminophen 2 tab 01/03/25 00:40 01/03/25 00:42 Oxycodone/Apap 5-325 Tablet PO 01/03/25 00:41 2 tab ONCE ONE Administration Discontinued Medications Generic Name Dose Route Start Last Admin Trade Name Freq PRN Reason Stop Dose Admin Sodium Chloride 1,000 mls @ 1,000 mls/hr 01/03/25 00:06 01/03/25 01:17 0.9 % Sodium Chloride 1000 Ml IV 01/03/25 01:05 Infused .Q1H TERENCE Infusion Ketorolac Tromethamine 30 mg 01/03/25 00:06 01/03/25 00:14 Ketorolac 30 Mg/Ml Inj IVP 01/03/25 00:07 30 mg ONCE ONE Administration Ondansetron HCl 4 mg 01/03/25 00:06 01/03/25 00:14 Ondansetron 2 Mg/Ml Inj IVP 01/03/25 00:07 4 mg ONCE ONE Administration Medical Decision Making Lab Data Labs: Lab Results 01/02/25 01/02/25 01/03/25 Range/Units 23:15 23:24 00:10 WBC 7.16 (4.50-11.00) K/uL RBC 4.48 (4.00-5.20) m/uL Hgb 12.9 (12.0-16.0) gm/dL Hct 39.6 (33.0-51.0) % MCV 88 (80-100) fL MCH 29 (26-34) pg MCHC 33 (32-36) gm/dL RDW Coeff of Melina 14.3 (11.5-15.5) % Plt Count 229 (140-440) K/uL Neut % (Auto) 61.5 (42.0-72.0) % Lymph % (Auto) 26.7 (20-44) % Cotton % (Auto) 9.6 (0.0-11.0) % Eos % (Auto) 2.0 (0.0-7.0) % Baso % (Auto) 0.1 (0.0-3.0) % Neut # (Auto) 4.40 (1.7-7.0) K/uL Lymph # (Auto) 1.91 (0.90-2.90) K/uL Cotton # (Auto) 0.70 (0.00-0.90) K/UL Eos # (Auto) 0.14 (0.00-0.50) K/uL Baso # (Auto) 0.01 (0.00-0.30) K/uL Abs Immat Gran (auto) 0.01 (0.00-0.30) K/uL Imm/Tot Granulo (auto) 0.1 % Sodium 132 L (135-149) mmol/L Potassium 3.6 (3.6-5.1) mmol/L Chloride 102 (96-114) mmol/L Carbon Dioxide 25 (20-32) mmol/L Anion Gap 5 L (7-15) mEq/L BUN 14 (5-24) mg/dL Creatinine 0.7 (0.5-1.5) mg/dL Estimated Creat Clear 88.37 Estimated GFR 112 ml/min Glucose 89 (60-115) mg/dL Calcium 8.7 (8.4-10.6) mg/dL Total Bilirubin 0.3 (0.1-1.5) mg/dL Direct Bilirubin 0.2 (0.0-0.5) mg/dL AST 38 H (12-35) U/L ALT 34 (4-35) U/L Alkaline Phosphatase 59 (40-150) U/L Total Protein 8.0 (6.0-8.3) g/dL Albumin 3.9 (3.3-5.0) g/dL Lipase 73 (23-300) U/L Urine Color Yellow (Yellow) Urine Appearance Slightly Cloudy A (Clear) Urine pH 7.0 (5.0-8.5) Ur Specific [address] 1.020 (1.000-1.030) Urine Protein Negative (Negative) Urine Glucose (UA) Negative (Negative) Urine Ketones Trace A (Negative) Urine Blood Negative (Negative) Urine Nitrite Negative (Negative) Urine Bilirubin Negative (Negative) Urine Urobilinogen 0.2 (0.2-1.0) Ur Leukocyte Esterase 1+ A (Negative) Urine RBC 0-2 (0-2) Urine WBC 0-2 (0-5) Ur Squamous Epith Cells Few (None-Few) Amorphous Sediment Few A (None) Urine Bacteria Moderate A (None) Urine HCG, Qual Negative (Negative) Discharge Plan Discharge Clinical Impression: Constipation Patient Disposition: Home, Self-Care Condition: Improved Additional Instructions: Push fluids. High fiber diet +/- Benefiber daily. Senna S 2 pills daily. Miralax 1 capful daily. Tylenol or Ibuprofen for pain. Follow up in the clinic if the problem is not resolving. Prescriptions: New sennosides-docusate sodium [Senna-S] 8.6-50 mg tablet 2 tab-cap PO DAILY Qty: 60 0RF polyethylene glycol 3350 [Miralax] 17 gram/dose powder 17 g PO DAILY Qty: 510 0RF Follow Up/Referrals: Provider,Not a Local [Primary Care Provider, Family Practice] Stand Alone Forms: [employer] Info Instructions
[2025-01-03 02:04] VITALS: BP 125/73; PULSE 72; RESP 18; TEMP 36.7; O2SAT 99
[2025-01-03 02:10] VITALS: BP 125/73; PULSE 72; RESP 18; TEMP 36.7
== END 2025-01-03 02:10 | disposition home or self-care (01) ==
PROVIDERS: Emergency Provider Family Medicine
DX: K59.00 Constipation, unspecified (principal); R10.A1 Flank pain, right side
CPT/HCPCS: 36415; 74177; 80048; 80076; 81001; 81025; 83690; 85025; 87086; 96361; 96374; 96375; 99283; 99284; 99285; A9270; J1885; J2405; J7030; Q9967